=== PATIENT | male | born 1965 | race African-American/Black ===

== ENCOUNTER 2018-02-22 11:19 | Inpatient (IN) | payer OTHER ==
[2018-02-22 11:42] VITALS: BMI 31.8
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
[2018-02-22] MEDS ORDERED: MENTHOL/PHENOL 1 EACH UD MM PRN (14:07)
[2018-02-22] MEDS ORDERED: MAG HYDROX/AL HYDROX/SIMETH 30 ML UNIT-DOSE CUP PO PRN (14:07)
[2018-02-22] MEDS ORDERED: MAGNESIUM HYDROX 2400MG/30ML ORAL SUSPENSION 30 ML CUP PO PRN (14:07)
[2018-02-22] MEDS ORDERED: P-EPHED 60MG/TRIPROLIDI 2.5MG TABLET PO PRN (14:07)
[2018-02-22] MEDS ORDERED: MAGNESIUM CITRATE 300 ML BOTTLE PO PRN (14:07)
[2018-02-22] MEDS ORDERED: chlordiazePOXIDE HCL 25 MG CAPSULE PO PRN (14:07)
[2018-02-22] MEDS ORDERED: guaiFENesin/D-METHORPHAN HB 10 ML UNIT-DOSE CUPS PO PRN (14:07)
[2018-02-22] MEDS ORDERED: LOPERAMIDE HCL 2 MG CAPSULE PO PRN (14:07)
[2018-02-22] MEDS ORDERED: IBUPROFEN 400 MG TABLET (FP) PO PRN (14:07)
[2018-02-22] MEDS ORDERED: ACETAMINOPHEN 325 MG TABLET (FP) PO PRN (14:07)
[2018-02-22] MEDS ORDERED: ALBUTEROL SO4 18 GM HFA INHALER IH PRN (14:12)
[2018-02-22] MEDS ORDERED: chlordiazePOXIDE HCL 25 MG CAPSULE PO ONE (15:00)
[2018-02-22] MEDS ORDERED: cloNIDine HCL 0.1 MG TABLET PO ONE (15:06)
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
[2018-02-22 17:02] LABS: HEMATOCRIT 41.3 % (35.4-49); HEMOGLOBIN 13.4 GM/dL (11.7-16.9); MCH 28.8 pg (25.7-33.7); MCHC 32.6 g/dl (32.0-35.9); MEAN CELL VOLUME 88.2 fl (80-96); MEAN PLT VOLUME 9.5 fl (7.5-11.1); PLATELET COUNT 194 K/MM3 (134-434); RBC 4.68 M/mm3 (4.00-5.60); RDW 15.2 % (11.9-15.9); WHITE BLOOD COUNT 4.3 K/mm3 (4.0-10.0)
[2018-02-22] MEDS ORDERED: chlordiazePOXIDE HCL 25 MG CAPSULE ONE (17:22)
[2018-02-22 17:30] LABS: ANION GAP 5 (8-16); BILIRUBIN,TOTAL 0.4 mg/dL (0.2-1.0); BLOOD UREA NITROGEN 14 mg/dL (7-18); CALCIUM 9.4 mg/dL (8.5-10.1); CHLORIDE 105 mmol/L (98-107); CO2 33 mmol/L (21-32); GLUCOSE,RANDOM 87 mg/dL (74-106); POTASSIUM 4.4 mmol/L (3.5-5.1); SGOT/AST 21 U/L (15-37); SGPT/ALT 36 U/L (12-78); SODIUM 143 mmol/L (136-145); TOT PROT 7.5 g/dl (6.4-8.2)
[2018-02-22 17:31] LABS: ALK PHOS 96 U/L (45-117)
[2018-02-22] MEDS: chlordiazePOXIDE HCL 25 MG CAPSULE PO SCH ×2 (17:33→22:22)
[2018-02-22 18:39] LABS: URINE APPEARANCE CLEAR; URINE BILIRUBIN NEGATIVE (<2.0 mg/dL); URINE COLOR YELLOW; URINE GLUCOSE (UA) NEGATIVE (NEGATIVE); URINE KETONE TRACE (NEGATIVE); URINE LEUK ESTERASE NEGATIVE (NEGATIVE); URINE NITRITE NEGATIVE (NEGATIVE); URINE PROTEIN NEGATIVE (NEGATIVE)
[2018-02-22] MEDS ORDERED: QUEtiapine FUMARATE 200 MG TABLET PO SCH (22:00)
[2018-02-22] MEDS ORDERED: QUEtiapine FUMARATE 100 MG TABLET (FP) PO SCH (22:00)
[2018-02-22] MEDS ORDERED: MELATONIN 5 MG TABLETS PO PRN (22:00)
[2018-02-22] MEDS: DULoxetine HCL 60 MG CAPSULE.DR PO SCH (22:22)
[2018-02-22] MEDS: traZODone HCL 100 MG TABLET (FP) PO SCH (22:22)
[2018-02-22] MEDS: THIAMINE HCL 100 MG TABLET (FP) PO SCH (22:22)
[2018-02-23] MEDS: chlordiazePOXIDE HCL 25 MG CAPSULE PO SCH ×4 (05:57→22:32)
--- NOTE | 2018-02-23 09:49 | EKG ---
Test Reason : Blood Pressure : / mmHG Vent. Rate : 058 BPM Atrial Rate : 058 BPM P-R Int : 174 ms QRS Dur : 088 ms QT Int : 402 ms P-R-T Axes : 037 038 -04 degrees QTc Int : 394 ms SINUS BRADYCARDIA MINIMAL VOLTAGE CRITERIA FOR LVH, MAY BE NORMAL VARIANT SEPTAL INFARCT , AGE UNDETERMINED ABNORMAL ECG NO PREVIOUS ECGS AVAILABLE Confirmed by TOM CUNNINGHAM MD ([id number]) on 02/23/2018 9:49:10 AM Referred By: Confirmed By:TOM CUNNINGHAM MD
[2018-02-23] MEDS: PRENATAL VITAMINS W/ FOLIC ACID TABLET (FP) PO SCH (10:34)
[2018-02-23] MEDS: ATENOLOL 50 MG TABLET (FP) PO SCH (10:34)
[2018-02-23] MEDS: DULoxetine HCL 60 MG CAPSULE.DR PO SCH ×2 (10:34→22:32)
[2018-02-23] MEDS: amLODIPine BESYLATE 10 MG TABLET (FP) PO SCH (10:34)
--- NOTE | 2018-02-23 12:08 | PN ---
[facility] Progress Note Note: Psychiatric nurse practitioner note: Patient able to tolerate his current evening dose of seroquel 200mg + Trazodone 100mg qhs. Pt was taking Seroquel 300mg before admitting self to detox. Seroquel to be increased to 250mg qhs. Pt. agreeable with plan. Verbal consent given.
--- NOTE | 2018-02-23 16:26 | PN ---
[facility] CIWA - CIWA Score Nausea/Vomitin-No Nausea/No Vomiting Muscle Tremors: 4-Moderate,w/Arms Extend Anxiety: 4-Mod. Anxious/Guarded Agitation: 2 Paroxysmal Sweats: 3 Orientation: 0-Oriented Tacttile Disturbances: 2-Mild Itch/Numbness/Burn Auditory Disturbances: 0-None Visual Disturbances: 2-Mild Sensitivity Headache: 0-None Present CIWA-Ar Total Score: 17 S Progress Note (SOAP) Subjective: Diarrhea, Sweating, Anxious, Tremors. Objective: PATIENT A & O X 3, OBSERVED AMBULATING ON UNIT. NO ACUTE DISTRESS. 02/23/18 16:27 Vital Signs Temperature 97.4 F L 02/23/18 14:00 Pulse Rate 80 02/23/18 14:00 Respiratory Rate 18 02/23/18 14:00 Blood Pressure 117/76 02/23/18 14:00 O2 Sat by Pulse Oximetry (%) Laboratory Tests 02/22/18 02/22/18 02/22/18 14:40 14:40 14:40 WBC 4.3 RBC 4.68 Hgb 13.4 Hct 41.3 MCV 88.2 MCH 28.8 MCHC 32.6 RDW 15.2 D Plt Count 194 MPV 9.5 D Sodium 143 Potassium 4.4 D Chloride 105 Carbon Dioxide 33 H Anion Gap 5 L BUN 14 Creatinine 1.0 D Creat Clearance w eGFR > 60 Random Glucose 87 Calcium 9.4 Total Bilirubin 0.4 D AST 21 ALT 36 D Alkaline Phosphatase 96 D Total Protein 7.5 Albumin 4.0 Urine Color Urine Appearance Urine pH Ur Specific [place] Urine Protein Urine Glucose (UA) Urine Ketones Urine Blood Urine Nitrite Urine Bilirubin Urine Urobilinogen Ur Leukocyte Esterase RPR Titer HIV 1&2 Antibody Screen Negative HIV P24 Antigen Negative 02/22/18 02/22/18 14:40 14:40 WBC RBC Hgb Hct MCV MCH MCHC RDW Plt Count MPV Sodium Potassium Chloride Carbon Dioxide Anion Gap BUN Creatinine Creat Clearance w eGFR Random Glucose Calcium Total Bilirubin AST ALT Alkaline Phosphatase Total Protein Albumin Urine Color Yellow Urine Appearance Clear Urine pH 7.0 Ur Specific [place] 1.018 Urine Protein Negative Urine Glucose (UA) Negative Urine Ketones Trace H Urine Blood Negative Urine Nitrite Negative Urine Bilirubin Negative Urine Urobilinogen 2.0 Ur Leukocyte Esterase Negative RPR Titer Nonreactive HIV 1&2 Antibody Screen HIV P24 Antigen LABS NOTED. Assessment: 02/23/18 16:27 WITHDRAWAL SYMPTOMS. Plan: CONTINUE DETOX. INCREASE DAILY PO FLUID INTAKE. PRN IMMODIUM FOR DIARRHEA.
[2018-02-23] MEDS ORDERED: QUEtiapine FUMARATE 200 MG TABLET ONE (21:41)
[2018-02-23] MEDS ORDERED: QUEtiapine FUMARATE 50 MG TABLET ONE (21:41)
[2018-02-23] MEDS ORDERED: QUEtiapine FUMARATE 200 MG TABLET PO SCH (22:00)
[2018-02-23] MEDS: traZODone HCL 100 MG TABLET (FP) PO SCH (22:32)
[2018-02-23] MEDS: THIAMINE HCL 100 MG TABLET (FP) PO SCH (22:32)
[2018-02-23] MEDS: QUETIAPINE FUMARATE 200 MG, QUETIAPINE FUMARATE 50 MG PO SCH (22:32)
[2018-02-24] MEDS: chlordiazePOXIDE HCL 25 MG CAPSULE PO SCH ×2 (05:29→10:35)
[2018-02-24] MEDS: ATENOLOL 50 MG TABLET (FP) PO SCH (10:34)
[2018-02-24] MEDS: DULoxetine HCL 60 MG CAPSULE.DR PO SCH ×2 (10:35→22:34)
[2018-02-24] MEDS: PRENATAL VITAMINS W/ FOLIC ACID TABLET (FP) PO SCH (10:35)
[2018-02-24] MEDS: amLODIPine BESYLATE 10 MG TABLET (FP) PO SCH (10:35)
[2018-02-24] MEDS: chlordiazePOXIDE 5 MG CAPSULE PO SCH ×2 (16:56→22:34)
[2018-02-24] MEDS ORDERED: QUEtiapine FUMARATE 50 MG TABLET ONE (21:24)
[2018-02-24] MEDS ORDERED: QUEtiapine FUMARATE 200 MG TABLET ONE (21:24)
--- NOTE | 2018-02-24 21:28 | PN ---
S CIWA - CIWA Score Nausea/Vomitin-No Nausea/No Vomiting Muscle Tremors: 3 Anxiety: 3 Agitation: 1-Slight > Activity Paroxysmal Sweats: 3 Orientation: 0-Oriented Tacttile Disturbances: 2-Mild Itch/Numbness/Burn Auditory Disturbances: 0-None Visual Disturbances: 2-Mild Sensitivity Headache: 0-None Present CIWA-Ar Total Score: 14 [facility] Progress Note (SOAP) Subjective: Sweating, Diarrhea, Anxious, Tremors. Objective: PATIENT A & O X 3, OBSERVED AMBULATING ON UNIT. NO ACUTE DISTRESS. 02/24/18 21:26 Vital Signs Temperature 98.7 F 02/24/18 17:54 Pulse Rate 76 02/24/18 17:54 Respiratory Rate 16 02/24/18 17:54 Blood Pressure 126/78 02/24/18 17:54 O2 Sat by Pulse Oximetry (%) Laboratory Tests 02/22/18 02/22/18 02/22/18 14:40 14:40 14:40 WBC 4.3 RBC 4.68 Hgb 13.4 Hct 41.3 MCV 88.2 MCH 28.8 MCHC 32.6 RDW 15.2 D Plt Count 194 MPV 9.5 D Sodium 143 Potassium 4.4 D Chloride 105 Carbon Dioxide 33 H Anion Gap 5 L BUN 14 Creatinine 1.0 D Creat Clearance w eGFR > 60 Random Glucose 87 Calcium 9.4 Total Bilirubin 0.4 D AST 21 ALT 36 D Alkaline Phosphatase 96 D Total Protein 7.5 Albumin 4.0 Urine Color Urine Appearance Urine pH Ur Specific [place] Urine Protein Urine Glucose (UA) Urine Ketones Urine Blood Urine Nitrite Urine Bilirubin Urine Urobilinogen Ur Leukocyte Esterase RPR Titer HIV 1&2 Antibody Screen Negative HIV P24 Antigen Negative 02/22/18 02/22/18 14:40 14:40 WBC RBC Hgb Hct MCV MCH MCHC RDW Plt Count MPV Sodium Potassium Chloride Carbon Dioxide Anion Gap BUN Creatinine Creat Clearance w eGFR Random Glucose Calcium Total Bilirubin AST ALT Alkaline Phosphatase Total Protein Albumin Urine Color Yellow Urine Appearance Clear Urine pH 7.0 Ur Specific [place] 1.018 Urine Protein Negative Urine Glucose (UA) Negative Urine Ketones Trace H Urine Blood Negative Urine Nitrite Negative Urine Bilirubin Negative Urine Urobilinogen 2.0 Ur Leukocyte Esterase Negative RPR Titer Nonreactive HIV 1&2 Antibody Screen HIV P24 Antigen LABS NOTED. Assessment: 02/24/18 21:26 WITHDRAWAL SYMPTOMS. Plan: CONTINUE DETOX. INCREASE DAILY PO FLUID INTAKE.
[2018-02-24] MEDS: THIAMINE HCL 100 MG TABLET (FP) PO SCH (22:34)
[2018-02-24] MEDS: QUETIAPINE FUMARATE 200 MG, QUETIAPINE FUMARATE 50 MG PO SCH (22:34)
[2018-02-24] MEDS: traZODone HCL 100 MG TABLET (FP) PO SCH (22:34)
[2018-02-25] MEDS: chlordiazePOXIDE 5 MG CAPSULE PO SCH ×2 (05:37→10:23)
[2018-02-25] MEDS: amLODIPine BESYLATE 10 MG TABLET (FP) PO SCH (10:23)
[2018-02-25] MEDS: ATENOLOL 50 MG TABLET (FP) PO SCH (10:23)
[2018-02-25] MEDS: DULoxetine HCL 60 MG CAPSULE.DR PO SCH ×2 (10:23→22:26)
[2018-02-25] MEDS: PRENATAL VITAMINS W/ FOLIC ACID TABLET (FP) PO SCH (10:23)
--- NOTE | 2018-02-25 13:14 | PN ---
[facility] Progress Note Note: body aches, Sweating, Diarrhea, Anxious Vital Signs Temperature 97.6 F 02/25/18 09:11 Pulse Rate 89 02/25/18 09:11 Respiratory Rate 18 02/25/18 09:11 Blood Pressure 129/82 02/25/18 09:11 O2 Sat by Pulse Oximetry (%) Laboratory Last Values WBC 4.3 K/mm3 (4.0-10.0) 02/22/18 14:40 RBC 4.68 M/mm3 (4.00-5.60) 02/22/18 14:40 Hgb 13.4 GM/dL (11.7-16.9) 02/22/18 14:40 Hct 41.3 % (35.4-49) 02/22/18 14:40 MCV 88.2 fl (80-96) 02/22/18 14:40 MCH 28.8 pg (25.7-33.7) 02/22/18 14:40 MCHC 32.6 g/dl (32.0-35.9) 02/22/18 14:40 RDW 15.2 % (11.9-15.9) D 02/22/18 14:40 Plt Count 194 K/MM3 (134-434) 02/22/18 14:40 MPV 9.5 fl (7.5-11.1) D 02/22/18 14:40 Sodium 143 mmol/L (136-145) 02/22/18 14:40 Potassium 4.4 mmol/L (3.5-5.1) D 02/22/18 14:40 Chloride 105 mmol/L (98-107) 02/22/18 14:40 Carbon Dioxide 33 mmol/L (21-32) H 02/22/18 14:40 Anion Gap 5 (8-16) L 02/22/18 14:40 BUN 14 mg/dL (7-18) 02/22/18 14:40 Creatinine 1.0 mg/dL (0.7-1.3) D 02/22/18 14:40 Creat Clearance w eGFR > 60 (>60) 02/22/18 14:40 Random Glucose 87 mg/dL (74-106) 02/22/18 14:40 Calcium 9.4 mg/dL (8.5-10.1) 02/22/18 14:40 Total Bilirubin 0.4 mg/dL (0.2-1.0) D 02/22/18 14:40 AST 21 U/L (15-37) 02/22/18 14:40 ALT 36 U/L (12-78) D 02/22/18 14:40 Alkaline Phosphatase 96 U/L (45-117) D 02/22/18 14:40 Total Protein 7.5 g/dl (6.4-8.2) 02/22/18 14:40 Albumin 4.0 g/dl (3.4-5.0) 02/22/18 14:40 Urine Color Yellow 02/22/18 14:40 Urine Appearance Clear 02/22/18 14:40 Urine pH 7.0 (5.0-8.0) 02/22/18 14:40 Ur Specific [place] 1.018 (1.001-1.035) 02/22/18 14:40 Urine Protein Negative (NEGATIVE) 02/22/18 14:40 Urine Glucose (UA) Negative (NEGATIVE) 02/22/18 14:40 Urine Ketones Trace (NEGATIVE) H 02/22/18 14:40 Urine Blood Negative (NEGATIVE) 02/22/18 14:40 Urine Nitrite Negative (NEGATIVE) 02/22/18 14:40 Urine Bilirubin Negative (<2.0 mg/dL) 02/22/18 14:40 Urine Urobilinogen 2.0 mg/dL (0.2-1.0) 02/22/18 14:40 Ur Leukocyte Esterase Negative (NEGATIVE) 02/22/18 14:40 RPR Titer Nonreactive (NONREACTIVE) 02/22/18 14:40 HIV 1&2 Antibody Screen Negative 02/22/18 14:40 HIV P24 Antigen Negative 02/22/18 14:40 AOx3 no distress no adventitious breath sound s full ROM, ambulating in the unit withdrawal symptoms continue detox increase fluids continue to monitor
[2018-02-25] MEDS: chlordiazePOXIDE HCL 10 MG CAPSULE PO SCH ×2 (17:35→22:25)
[2018-02-25] MEDS ORDERED: QUEtiapine FUMARATE 200 MG TABLET ONE (21:17)
[2018-02-25] MEDS ORDERED: QUEtiapine FUMARATE 50 MG TABLET ONE (21:17)
[2018-02-25] MEDS: traZODone HCL 100 MG TABLET (FP) PO SCH (22:25)
[2018-02-25] MEDS: QUETIAPINE FUMARATE 200 MG, QUETIAPINE FUMARATE 50 MG PO SCH (22:25)
[2018-02-25] MEDS: THIAMINE HCL 100 MG TABLET (FP) PO SCH (22:27)
[2018-02-26] MEDS: chlordiazePOXIDE HCL 10 MG CAPSULE PO SCH ×2 (05:32→11:05)
[2018-02-26] MEDS: ATENOLOL 50 MG TABLET (FP) PO SCH (10:20)
[2018-02-26] MEDS: amLODIPine BESYLATE 10 MG TABLET (FP) PO SCH (10:20)
[2018-02-26] MEDS: PRENATAL VITAMINS W/ FOLIC ACID TABLET (FP) PO SCH (10:20)
[2018-02-26] MEDS: DULoxetine HCL 60 MG CAPSULE.DR PO SCH (10:20)
--- NOTE | 2018-02-26 10:21 | PN ---
[facility] Progress Note (SOAP) Subjective: DETOX COMPLETED. ALERT O X 3. NAD. PT REFERRED TO [facility] FOR [facility]ARE. Objective: 02/26/18 10:19 Vital Signs 02/26/18 02/26/18 02/26/18 06:30 06:35 09:06 Temperature 97.2 F L 97.0 F L Pulse Rate 67 84 Respiratory 18 18 16 Rate Blood Pressure 112/68 113/72 Laboratory Tests 02/22/18 02/22/18 02/22/18 14:40 14:40 14:40 WBC 4.3 RBC 4.68 Hgb 13.4 Hct 41.3 MCV 88.2 MCH 28.8 MCHC 32.6 RDW 15.2 D Plt Count 194 MPV 9.5 D Sodium 143 Potassium 4.4 D Chloride 105 Carbon Dioxide 33 H Anion Gap 5 L BUN 14 Creatinine 1.0 D Creat Clearance w eGFR > 60 Random Glucose 87 Calcium 9.4 Total Bilirubin 0.4 D AST 21 ALT 36 D Alkaline Phosphatase 96 D Total Protein 7.5 Albumin 4.0 Urine Color Urine Appearance Urine pH Ur Specific [place] Urine Protein Urine Glucose (UA) Urine Ketones Urine Blood Urine Nitrite Urine Bilirubin Urine Urobilinogen Ur Leukocyte Esterase RPR Titer HIV 1&2 Antibody Screen Negative HIV P24 Antigen Negative 02/22/18 02/22/18 14:40 14:40 WBC RBC Hgb Hct MCV MCH MCHC RDW Plt Count MPV Sodium Potassium Chloride Carbon Dioxide Anion Gap BUN Creatinine Creat Clearance w eGFR Random Glucose Calcium Total Bilirubin AST ALT Alkaline Phosphatase Total Protein Albumin Urine Color Yellow Urine Appearance Clear Urine pH 7.0 Ur Specific [place] 1.018 Urine Protein Negative Urine Glucose (UA) Negative Urine Ketones Trace H Urine Blood Negative Urine Nitrite Negative Urine Bilirubin Negative Urine Urobilinogen 2.0 Ur Leukocyte Esterase Negative RPR Titer Nonreactive HIV 1&2 Antibody Screen HIV P24 Antigen Assessment: 02/26/18 10:19 MEDICALLY STABLE Plan: D/C PT [place]
--- NOTE | 2018-02-26 10:24 | DS ---
[facility] Detox Discharge Summary Admission Date: 02/22/18 Discharge Date: 02/26/18 - History Present History: Alcohol Dependence Additional Comments: DETOX COMPLETED. ALERT O X 3. NAD. PT REPORTS PRIMARY CARE WITH LANCE DUONG BRICK PICKER AT [facility]. PT REPORTS HE HAS OWN MEDS. Pertinent Past History: SEE DX BELOW - Physical Exam Results Vital Signs: Vital Signs Temperature 97.0 F L 02/26/18 09:06 Pulse Rate 84 02/26/18 09:06 Respiratory Rate 16 02/26/18 09:06 Blood Pressure 113/72 02/26/18 09:06 O2 Sat by Pulse Oximetry (%) Pertinent Admission Physical Exam Findings: WITHDRAWAL SX - Treatment Hospital Course: Detox Protocol Followed, Detoxed Safely, Responded well, Discharged Condition Good, Rehab Referral Accepted Patient has Accepted a Rehab Referral to: [facility] - Medication Discharge Medications: Ambulatory Orders Albuterol Sulfate Inhaler - [Ventolin Hfa Inhaler -] 2 inh PO Q4H PRN 02/22/18 Amlodipine Besylate [Norvasc -] 10 mg PO DAILY 02/22/18 Atenolol [Tenormin -] 100 mg PO DAILY 02/22/18 Duloxetine HCl [Cymbalta -] 60 mg PO BID 02/22/18 Multivitamins [Tab-A-Vit -] 1 tab PO DAILY 02/22/18 Naltrexone HCl 50 mg PO DAILY 02/22/18 Quetiapine Fumarate [Seroquel] 300 tab PO HS 02/22/18 Trazodone HCl 100 mg PO HS 02/22/18 - Diagnosis (1) Alcohol dependence with uncomplicated withdrawal Current Visit: Yes Status: Acute (2) Alcohol related seizure Current Visit: Yes Status: Suspected (3) Nicotine dependence Current Visit: Yes Status: Acute Qualifiers: Nicotine product type: cigarettes Substance use status: in withdrawal Qualified Code(s): F17.213 - Nicotine dependence, cigarettes, with withdrawal (4) Arthritis Current Visit: Yes Status: Chronic (5) History of abdominal surgery Current Visit: Yes Status: Resolved (6) History of partial nephrectomy Current Visit: Yes Status: Resolved (7) History of seizure Current Visit: Yes Status: Suspected (8) Hypertension Current Visit: Yes Status: Chronic Qualifiers: Hypertension type: essential hypertension Qualified Code(s): I10 - Essential (primary) hypertension (9) COPD (chronic obstructive pulmonary disease) Current Visit: Yes Status: Chronic Qualifiers: COPD type: unspecified COPD Qualified Code(s): J44.9 - Chronic obstructive pulmonary disease, unspecified (10) Hepatitis C Current Visit: Yes Status: Resolved Qualifiers: Viral hepatitis chronicity: chronic Hepatic coma status: without hepatic coma Qualified Code(s): B18.2 - Chronic viral hepatitis C (11) Carpal tunnel syndrome, bilateral Current Visit: Yes Status: Chronic - AMA Did Patient Leave Against Medical Advice: No
[2018-02-26 13:07] VITALS: BP 127/79; PULSE 71; TEMP 98.6
== END 2018-02-26 13:55 | disposition other institution (70) | DRG 775 ==
LOC: YASAS 11:19 → Y3N 14:05
PROVIDERS: ADMIT Family Medicine Addiction Medicine; ATTEND Family Medicine Addiction Medicine
PROC: HZ2ZZZZ Detoxification Services for Substance Abuse Treatment (ICD-10-PCS; principal; 2018-02-22)
DX: F10.230 Alcohol dependence with withdrawal, uncomplicated (principal); F17.213 Nicotine dependence, cigarettes, with withdrawal; F25.9 Schizoaffective disorder, unspecified; F19.282 Other psychoactive substance dependence with psychoactive substance-induced sleep disorder; I10 Essential (primary) hypertension; M19.90 Unspecified osteoarthritis, unspecified site; J44.9 Chronic obstructive pulmonary disease, unspecified; B18.2 Chronic viral hepatitis C; G56.03 Carpal tunnel syndrome, bilateral upper limbs; Z86.69 Personal history of other diseases of the nervous system and sense organs; Z90.5 Acquired absence of kidney; Z91.041 Radiographic dye allergy status; Z91.5 Personal history of self-harm
CPT/HCPCS: 36415; 80053; 81003; 85027; 86593; 87389; 93005; 93010; J0735

== ENCOUNTER 2018-06-20 19:40 | Inpatient (IN) | payer OTHER ==
[2018-06-20 20:15] VITALS: BMI 25.1
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
[2018-06-20] MEDS ORDERED: LOPERAMIDE HCL 2 MG CAPSULE PO PRN (21:05)
[2018-06-20] MEDS ORDERED: MENTHOL/PHENOL 1 EACH UD MM PRN (21:05)
[2018-06-20] MEDS ORDERED: guaiFENesin/D-METHORPHAN HB 10 ML UNIT-DOSE CUPS PO PRN (21:05)
[2018-06-20] MEDS ORDERED: hydrOXYzine PAMOATE 50 MG CAPSULE (FP) PO PRN (21:05)
[2018-06-20] MEDS ORDERED: ACETAMINOPHEN 325 MG TABLET (FP) PO PRN (21:05)
[2018-06-20] MEDS ORDERED: MAGNESIUM CITRATE 300 ML BOTTLE PO PRN (21:05)
[2018-06-20] MEDS ORDERED: MAGNESIUM HYDROX 2400MG/30ML ORAL SUSPENSION 30 ML CUP PO PRN (21:05)
[2018-06-20] MEDS ORDERED: chlordiazePOXIDE HCL 25 MG CAPSULE PO ONE (21:05)
[2018-06-20] MEDS ORDERED: MAG HYDROX/AL HYDROX/SIMETH 30 ML UNIT-DOSE CUP PO PRN (21:05)
[2018-06-20] MEDS ORDERED: P-EPHED 60MG/TRIPROLIDI 2.5MG TABLET PO PRN (21:05)
[2018-06-20] MEDS ORDERED: chlordiazePOXIDE HCL 25 MG CAPSULE PO PRN (21:05)
[2018-06-20] MEDS ORDERED: IBUPROFEN 400 MG TABLET (FP) PO PRN (21:05)
[2018-06-20] MEDS ORDERED: ALBUTEROL SO4 8 GM HFA INHALER IH PRN (21:07)
[2018-06-20] MEDS ORDERED: MELATONIN 5 MG TABLETS PO PRN (22:00)
[2018-06-20] MEDS ORDERED: ZOLPIDEM TARTRATE 5 MG TABLET PO PRN (22:00)
[2018-06-20] MEDS: chlordiazePOXIDE HCL 25 MG CAPSULE PO SCH (22:19)
[2018-06-20] MEDS: THIAMINE HCL 100 MG TABLET (FP) PO SCH (22:20)
[2018-06-20 23:17] LABS: URINE APPEARANCE CLEAR; URINE BILIRUBIN NEGATIVE (<2.0 mg/dL); URINE COLOR YELLOW; URINE GLUCOSE (UA) NEGATIVE (NEGATIVE); URINE KETONE 1+ (NEGATIVE); URINE LEUK ESTERASE NEGATIVE (NEGATIVE); URINE NITRITE NEGATIVE (NEGATIVE); URINE PROTEIN 1+ (NEGATIVE)
[2018-06-20 23:30] LABS: EPI CELLS RARE /HPF (FEW); URINE MUCUS FEW
[2018-06-21] MEDS: chlordiazePOXIDE HCL 25 MG CAPSULE PO SCH ×4 (05:47→22:25)
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
[2018-06-21 10:19] LABS: HEMATOCRIT 44.3 % (35.4-49); HEMOGLOBIN 13.9 GM/dL (11.7-16.9); MCH 27.5 pg (25.7-33.7); MCHC 31.4 g/dl (32.0-35.9); MEAN CELL VOLUME 87.8 fl (80-96); MEAN PLT VOLUME 9.6 fl (7.5-11.1); PLATELET COUNT 161 K/MM3 (134-434); RBC 5.05 M/mm3 (4.00-5.60); RDW 13.9 % (11.9-15.9); WHITE BLOOD COUNT 4.2 K/mm3 (4.0-10.0)
[2018-06-21] MEDS: ATENOLOL 50 MG TABLET (FP) PO SCH (10:29)
[2018-06-21] MEDS: PRENATAL VITAMINS W/ FOLIC ACID TABLET (FP) PO SCH (10:29)
[2018-06-21] MEDS: DULoxetine HCL 60 MG CAPSULE.DR PO SCH ×2 (10:29→22:25)
[2018-06-21] MEDS: amLODIPine BESYLATE 10 MG TABLET (FP) PO SCH (10:29)
[2018-06-21 10:34] LABS: ALBUMIN 3.7 g/dl (3.4-5.0); ALK PHOS 93 U/L (45-117); ANION GAP 8 MMOL/L (8-16); BILIRUBIN,TOTAL 0.7 mg/dL (0.2-1); BLOOD UREA NITROGEN 12 mg/dL (7-18); CALCIUM 8.8 mg/dL (8.5-10.1); CHLORIDE 102 mmol/L (98-107); CO2 29 mmol/L (21-32); CREATININE 0.8 mg/dL (0.55-1.3); GLUCOSE,RANDOM 79 mg/dL (74-106); SGOT/AST 32 U/L (15-37); SGPT/ALT 27 U/L (13-61); SODIUM 139 mmol/L (136-145); TOT PROT 7.1 g/dl (6.4-8.2)
[2018-06-21 11:32] LABS: RPR NONREACTIVE (NONREACTIVE)
--- NOTE | 2018-06-21 11:53 | PN ---
[facility] CIWA - CIWA Score Nausea/Vomitin-No Nausea/No Vomiting Muscle Tremors: 3 Anxiety: 3 Agitation: 3 Paroxysmal Sweats: 3 Orientation: 0-Oriented Tacttile Disturbances: 0-None Auditory Disturbances: 0-None Visual Disturbances: 0-None Headache: 0-None Present CIWA-Ar Total Score: 12 BHS Progress Note (SOAP) Subjective: agitation stomach ache sweats body aches irritable diarrhea Objective: 06/21/18 11:51 Vital Signs Temperature 98.1 F 06/21/18 11:03 Pulse Rate 90 06/21/18 11:03 Respiratory Rate 18 06/21/18 11:03 Blood Pressure 117/73 06/21/18 11:03 O2 Sat by Pulse Oximetry (%) Laboratory Tests 06/20/18 06/21/18 06/21/18 23:00 07:00 07:00 WBC 4.2 RBC 5.05 Hgb 13.9 Hct 44.3 MCV 87.8 MCH 27.5 MCHC 31.4 L RDW 13.9 Plt Count 161 MPV 9.6 Sodium 139 Potassium 4.0 Chloride 102 Carbon Dioxide 29 Anion Gap 8 BUN 12 Creatinine 0.8 Creat Clearance w eGFR > 60 Random Glucose 79 Calcium 8.8 Total Bilirubin 0.7 AST 32 ALT 27 Alkaline Phosphatase 93 Total Protein 7.1 Albumin 3.7 Urine Color Yellow Urine Appearance Clear Urine pH 6.0 Ur Specific [place] 1.023 Urine Protein 1+ H Urine Glucose (UA) Negative Urine Ketones 1+ H Urine Blood Negative Urine Nitrite Negative Urine Bilirubin Negative Urine Urobilinogen 2.0 Ur Leukocyte Esterase Negative Urine WBC (Auto) 9 Urine RBC (Auto) 1 Ur Epithelial Cells Rare Urine Mucus Few RPR Titer HIV 1&2 Antibody Screen HIV P24 Antigen 06/21/18 07:00 WBC RBC Hgb Hct MCV MCH MCHC RDW Plt Count MPV Sodium Potassium Chloride Carbon Dioxide Anion Gap BUN Creatinine Creat Clearance w eGFR Random Glucose Calcium Total Bilirubin AST ALT Alkaline Phosphatase Total Protein Albumin Urine Color Urine Appearance Urine pH Ur Specific [place] Urine Protein Urine Glucose (UA) Urine Ketones Urine Blood Urine Nitrite Urine Bilirubin Urine Urobilinogen Ur Leukocyte Esterase Urine WBC (Auto) Urine RBC (Auto) Ur Epithelial Cells Urine Mucus RPR Titer Nonreactive HIV 1&2 Antibody Screen Negative HIV P24 Antigen Negative aaox3 ambulating no acute distress Assessment: 06/21/18 11:51 withdrawal sx Plan: continue detox increase fluids MOM prn immodium prn maribel marce ordered
--- NOTE | 2018-06-21 12:13 | EKG ---
Test Reason : Blood Pressure : / mmHG Vent. Rate : 080 BPM Atrial Rate : 080 BPM P-R Int : 166 ms QRS Dur : 078 ms QT Int : 400 ms P-R-T Axes : 047 048 016 degrees QTc Int : 461 ms NORMAL SINUS RHYTHM NONSPECIFIC T WAVE ABNORMALITY PROLONGED QT ABNORMAL ECG WHEN COMPARED WITH ECG OF 22-FEB-2018 15:06, CRITERIA FOR SEPTAL INFARCT ARE NO LONGER PRESENT QT HAS LENGTHENED Confirmed by COLLINS CRUZ, YAMIL ([id number]) on 06/21/2018 12:12:44 PM Referred By: Confirmed By:YAMIL GUADALUPE MD
[2018-06-21] MEDS ORDERED: QUEtiapine FUMARATE 100 MG TABLET (FP) PO SCH (22:00)
[2018-06-21] MEDS: traZODone HCL 100 MG TABLET (FP) PO SCH (22:25)
[2018-06-21] MEDS: THIAMINE HCL 100 MG TABLET (FP) PO SCH (22:25)
[2018-06-21] MEDS: QUEtiapine FUMARATE 300 MG TABLET PO SCH (22:27)
[2018-06-22] MEDS: chlordiazePOXIDE HCL 25 MG CAPSULE PO SCH ×3 (05:42→17:33)
[2018-06-22] MEDS: ATENOLOL 50 MG TABLET (FP) PO SCH (11:04)
[2018-06-22] MEDS: PRENATAL VITAMINS W/ FOLIC ACID TABLET (FP) PO SCH (11:04)
[2018-06-22] MEDS: amLODIPine BESYLATE 10 MG TABLET (FP) PO SCH (11:04)
[2018-06-22] MEDS: DULoxetine HCL 60 MG CAPSULE.DR PO SCH ×2 (11:04→22:17)
--- NOTE | 2018-06-22 14:02 | PN ---
[facility] CIWA - CIWA Score Nausea/Vomitin-No Nausea/No Vomiting Muscle Tremors: 3 Anxiety: 3 Agitation: 3 Paroxysmal Sweats: 2 Orientation: 0-Oriented Tacttile Disturbances: 0-None Auditory Disturbances: 0-None Visual Disturbances: 0-None Headache: 0-None Present CIWA-Ar Total Score: 11 S Progress Note (SOAP) Subjective: little diarrhea sweats agitation Objective: 06/22/18 14:01 Vital Signs Temperature 97.8 F 06/22/18 10:00 Pulse Rate 95 H 06/22/18 10:00 Respiratory Rate 18 06/22/18 10:00 Blood Pressure 108/65 06/22/18 10:00 O2 Sat by Pulse Oximetry (%) Laboratory Tests 06/20/18 06/21/18 06/21/18 23:00 07:00 07:00 WBC 4.2 RBC 5.05 Hgb 13.9 Hct 44.3 MCV 87.8 MCH 27.5 MCHC 31.4 L RDW 13.9 Plt Count 161 MPV 9.6 Sodium 139 Potassium 4.0 Chloride 102 Carbon Dioxide 29 Anion Gap 8 BUN 12 Creatinine 0.8 Creat Clearance w eGFR > 60 Random Glucose 79 Calcium 8.8 Total Bilirubin 0.7 AST 32 ALT 27 Alkaline Phosphatase 93 Total Protein 7.1 Albumin 3.7 Urine Color Yellow Urine Appearance Clear Urine pH 6.0 Ur Specific [place] 1.023 Urine Protein 1+ H Urine Glucose (UA) Negative Urine Ketones 1+ H Urine Blood Negative Urine Nitrite Negative Urine Bilirubin Negative Urine Urobilinogen 2.0 Ur Leukocyte Esterase Negative Urine WBC (Auto) 9 Urine RBC (Auto) 1 Ur Epithelial Cells Rare Urine Mucus Few [place] RPR Titer HIV 1&2 Antibody Screen HIV P24 Antigen 06/21/18 06/21/18 07:00 07:00 WBC RBC Hgb Hct MCV MCH MCHC RDW Plt Count MPV Sodium Potassium Chloride Carbon Dioxide Anion Gap BUN Creatinine Creat Clearance w eGFR Random Glucose Calcium Total Bilirubin AST ALT Alkaline Phosphatase Total Protein Albumin Urine Color Urine Appearance Urine pH Ur Specific [place] Urine Protein Urine Glucose (UA) Urine Ketones Urine Blood Urine Nitrite Urine Bilirubin Urine Urobilinogen Ur Leukocyte Esterase Urine WBC (Auto) Urine RBC (Auto) Ur Epithelial Cells Urine Mucus [place] 0 L RPR Titer Nonreactive HIV 1&2 Antibody Screen Negative HIV P24 Antigen Negative aaox3 ambulating no acute distress Assessment: 06/22/18 14:02 mild withdrawal sx Plan: continue detox increase fluids immodium prn
[2018-06-22] MEDS: chlordiazePOXIDE 5 MG CAPSULE PO SCH (22:16)
[2018-06-22] MEDS: traZODone HCL 100 MG TABLET (FP) PO SCH (22:16)
[2018-06-22] MEDS: THIAMINE HCL 100 MG TABLET (FP) PO SCH (22:17)
[2018-06-22] MEDS: QUEtiapine FUMARATE 300 MG TABLET PO SCH (22:17)
[2018-06-23] MEDS: chlordiazePOXIDE 5 MG CAPSULE PO SCH ×3 (05:47→17:16)
[2018-06-23] MEDS: PRENATAL VITAMINS W/ FOLIC ACID TABLET (FP) PO SCH (10:46)
[2018-06-23] MEDS: ATENOLOL 50 MG TABLET (FP) PO SCH (10:46)
[2018-06-23] MEDS: DULoxetine HCL 60 MG CAPSULE.DR PO SCH ×2 (10:46→22:16)
[2018-06-23] MEDS: amLODIPine BESYLATE 10 MG TABLET (FP) PO SCH (10:46)
--- NOTE | 2018-06-23 15:46 | PN ---
[facility] Progress Note Note: Vital Signs Temperature 97.5 F L 06/23/18 15:14 Pulse Rate 84 06/23/18 15:14 Respiratory Rate 16 06/23/18 15:14 Blood Pressure 109/53 L 06/23/18 15:14 O2 Sat by Pulse Oximetry (%) Laboratory Last Values WBC 4.2 K/mm3 (4.0-10.0) 06/21/18 07:00 RBC 5.05 M/mm3 (4.00-5.60) 06/21/18 07:00 Hgb 13.9 GM/dL (11.7-16.9) 06/21/18 07:00 Hct 44.3 % (35.4-49) 06/21/18 07:00 MCV 87.8 fl (80-96) 06/21/18 07:00 MCH 27.5 pg (25.7-33.7) 06/21/18 07:00 MCHC 31.4 g/dl (32.0-35.9) L 06/21/18 07:00 RDW 13.9 % (11.9-15.9) 06/21/18 07:00 Plt Count 161 K/MM3 (134-434) 06/21/18 07:00 MPV 9.6 fl (7.5-11.1) 06/21/18 07:00 Sodium 139 mmol/L (136-145) 06/21/18 07:00 Potassium 4.0 mmol/L (3.5-5.1) 06/21/18 07:00 Chloride 102 mmol/L (98-107) 06/21/18 07:00 Carbon Dioxide 29 mmol/L (21-32) 06/21/18 07:00 Anion Gap 8 MMOL/L (8-16) 06/21/18 07:00 BUN 12 mg/dL (7-18) 06/21/18 07:00 Creatinine 0.8 mg/dL (0.55-1.3) 06/21/18 07:00 Creat Clearance w eGFR > 60 (>60) 06/21/18 07:00 Random Glucose 79 mg/dL (74-106) 06/21/18 07:00 Calcium 8.8 mg/dL (8.5-10.1) 06/21/18 07:00 Total Bilirubin 0.7 mg/dL (0.2-1) 06/21/18 07:00 AST 32 U/L (15-37) 06/21/18 07:00 ALT 27 U/L (13-61) 06/21/18 07:00 Alkaline Phosphatase 93 U/L (45-117) 06/21/18 07:00 Total Protein 7.1 g/dl (6.4-8.2) 06/21/18 07:00 Albumin 3.7 g/dl (3.4-5.0) 06/21/18 07:00 Urine Color Yellow 06/20/18 23:00 Urine Appearance Clear 06/20/18 23:00 Urine pH 6.0 (5.0-8.0) 06/20/18 23:00 Ur Specific [place] 1.023 (1.010-1.035) 06/20/18 23:00 Urine Protein 1+ (NEGATIVE) H 06/20/18 23:00 Urine Glucose (UA) Negative (NEGATIVE) 06/20/18 23:00 Urine Ketones 1+ (NEGATIVE) H 06/20/18 23:00 Urine Blood Negative (NEGATIVE) 06/20/18 23:00 Urine Nitrite Negative (NEGATIVE) 06/20/18 23:00 Urine Bilirubin Negative (<2.0 mg/dL) 06/20/18 23:00 Urine Urobilinogen 2.0 mg/dL (0.2-1.0) 06/20/18 23:00 Ur Leukocyte Esterase Negative (NEGATIVE) 06/20/18 23:00 Urine WBC (Auto) 9 /hpf (3-5) 06/20/18 23:00 Urine RBC (Auto) 1 /hpf (0-3) 06/20/18 23:00 Ur Epithelial Cells Rare /HPF (FEW) 06/20/18 23:00 Urine Mucus Few 06/20/18 23:00 [place] 0 MEQ/L (0.6-1.2) L 06/21/18 07:00 RPR Titer Nonreactive (NONREACTIVE) 06/21/18 07:00 HIV 1&2 Antibody Screen Negative 06/21/18 07:00 HIV P24 Antigen Negative 06/21/18 07:00 body aches, diarrhea, anxious AOx3 no distress no adventitious breath sounds full ROM ambulating in the unit withdrawal sx continue detox d/c 06/25/18 to rehab
[2018-06-23] MEDS: THIAMINE HCL 100 MG TABLET (FP) PO SCH (22:16)
[2018-06-23] MEDS: chlordiazePOXIDE HCL 10 MG CAPSULE PO SCH (22:16)
[2018-06-23] MEDS: QUEtiapine FUMARATE 300 MG TABLET PO SCH (22:17)
[2018-06-23] MEDS: traZODone HCL 100 MG TABLET (FP) PO SCH (22:17)
[2018-06-24] MEDS: chlordiazePOXIDE HCL 10 MG CAPSULE PO SCH ×2 (05:53→10:49)
[2018-06-24] MEDS: PRENATAL VITAMINS W/ FOLIC ACID TABLET (FP) PO SCH (09:53)
[2018-06-24] MEDS: ATENOLOL 50 MG TABLET (FP) PO SCH (09:53)
[2018-06-24] MEDS: amLODIPine BESYLATE 10 MG TABLET (FP) PO SCH (09:53)
[2018-06-24] MEDS: DULoxetine HCL 60 MG CAPSULE.DR PO SCH (09:53)
[2018-06-24 11:18] VITALS: BP 103/63; PULSE 72; TEMP 98.6
--- NOTE | 2018-06-24 13:33 | DS ---
[facility] Detox Discharge Summary Admission Date: 06/20/18 Discharge Date: 06/24/18 - History Present History: Alcohol Dependence Additional Comments: 53 years old male admitted on 06/20/18 for alcohol withdrawal sx completed alcohol detox regimen tolerated well denies alcohol withdrawal sx alert oriented x 3 no acute distress aftercare [facility] - Physical Exam Results Vital Signs: Vital Signs Temperature 98.6 F 06/24/18 10:00 Pulse Rate 72 06/24/18 10:00 Respiratory Rate 16 06/24/18 10:00 Blood Pressure 103/63 06/24/18 10:00 O2 Sat by Pulse Oximetry (%) Pertinent Admission Physical Exam Findings: alcohol withdrawal sx Vital Signs Temperature 98.6 F 06/24/18 10:00 Pulse Rate 72 06/24/18 10:00 Respiratory Rate 16 06/24/18 10:00 Blood Pressure 103/63 06/24/18 10:00 O2 Sat by Pulse Oximetry (%) Laboratory Last Values WBC 4.2 K/mm3 (4.0-10.0) 06/21/18 07:00 RBC 5.05 M/mm3 (4.00-5.60) 06/21/18 07:00 Hgb 13.9 GM/dL (11.7-16.9) 06/21/18 07:00 Hct 44.3 % (35.4-49) 06/21/18 07:00 MCV 87.8 fl (80-96) 06/21/18 07:00 MCH 27.5 pg (25.7-33.7) 06/21/18 07:00 MCHC 31.4 g/dl (32.0-35.9) L 06/21/18 07:00 RDW 13.9 % (11.9-15.9) 06/21/18 07:00 Plt Count 161 K/MM3 (134-434) 06/21/18 07:00 MPV 9.6 fl (7.5-11.1) 06/21/18 07:00 Sodium 139 mmol/L (136-145) 06/21/18 07:00 Potassium 4.0 mmol/L (3.5-5.1) 06/21/18 07:00 Chloride 102 mmol/L (98-107) 06/21/18 07:00 Carbon Dioxide 29 mmol/L (21-32) 06/21/18 07:00 Anion Gap 8 MMOL/L (8-16) 06/21/18 07:00 BUN 12 mg/dL (7-18) 06/21/18 07:00 Creatinine 0.8 mg/dL (0.55-1.3) 06/21/18 07:00 Creat Clearance w eGFR > 60 (>60) 06/21/18 07:00 Random Glucose 79 mg/dL (74-106) 06/21/18 07:00 Calcium 8.8 mg/dL (8.5-10.1) 06/21/18 07:00 Total Bilirubin 0.7 mg/dL (0.2-1) 06/21/18 07:00 AST 32 U/L (15-37) 06/21/18 07:00 ALT 27 U/L (13-61) 06/21/18 07:00 Alkaline Phosphatase 93 U/L (45-117) 06/21/18 07:00 Total Protein 7.1 g/dl (6.4-8.2) 06/21/18 07:00 Albumin 3.7 g/dl (3.4-5.0) 06/21/18 07:00 Urine Color Yellow 06/20/18 23:00 Urine Appearance Clear 06/20/18 23:00 Urine pH 6.0 (5.0-8.0) 06/20/18 23:00 Ur Specific [place] 1.023 (1.010-1.035) 06/20/18 23:00 Urine Protein 1+ (NEGATIVE) H 06/20/18 23:00 Urine Glucose (UA) Negative (NEGATIVE) 06/20/18 23:00 Urine Ketones 1+ (NEGATIVE) H 06/20/18 23:00 Urine Blood Negative (NEGATIVE) 06/20/18 23:00 Urine Nitrite Negative (NEGATIVE) 06/20/18 23:00 Urine Bilirubin Negative (<2.0 mg/dL) 06/20/18 23:00 Urine Urobilinogen 2.0 mg/dL (0.2-1.0) 06/20/18 23:00 Ur Leukocyte Esterase Negative (NEGATIVE) 06/20/18 23:00 Urine WBC (Auto) 9 /hpf (3-5) 06/20/18 23:00 Urine RBC (Auto) 1 /hpf (0-3) 06/20/18 23:00 Ur Epithelial Cells Rare /HPF (FEW) 06/20/18 23:00 Urine Mucus Few 06/20/18 23:00 [place] 0 MEQ/L (0.6-1.2) L 06/21/18 07:00 RPR Titer Nonreactive (NONREACTIVE) 06/21/18 07:00 HIV 1&2 Antibody Screen Negative 06/21/18 07:00 HIV P24 Antigen Negative 06/21/18 07:00 lab noted - Treatment Hospital Course: Detox Protocol Followed, Detoxed Safely, Responded well, Discharged Condition Good, Rehab Referral Accepted Patient has Accepted a Rehab Referral to: [facility] - Medication Discharge Medications: Ambulatory Orders Multivitamins [Multivit ([facility] Formulary)] 1 tab PO DAILY 02/22/18 Naltrexone HCl 50 mg PO DAILY 02/22/18 Quetiapine Fumarate [Seroquel] 300 tab PO HS 02/22/18 Gabapentin [Neurontin -] 300 mg PO TID #90 capsule 03/12/18 Duloxetine HCl [Cymbalta -] 60 mg PO BID #60 capsule. 06/21/18 Quetiapine Fumarate [Seroquel -] 300 mg PO HS #30 tab 06/21/18 traZODone HCL [Desyrel -] 200 mg PO HS #30 tablet 06/21/18 Albuterol Sulfate Inhaler - [Ventolin HFA Inhaler -] 2 inh PO Q4H PRN #1 inhaler 06/24/18 Amlodipine Besylate [Norvasc -] 10 mg PO DAILY #30 tablet 06/24/18 Atenolol [Tenormin -] 100 mg PO DAILY #30 tablet 06/24/18 - Diagnosis (1) Alcohol dependence with uncomplicated withdrawal Current Visit: Yes Status: Acute (2) COPD (chronic obstructive pulmonary disease) Current Visit: Yes Status: Chronic Qualifiers: COPD type: unspecified COPD Qualified Code(s): J44.9 - Chronic obstructive pulmonary disease, unspecified (3) Hypertension Current Visit: Yes Status: Chronic Qualifiers: Hypertension type: essential hypertension Qualified Code(s): I10 - Essential (primary) hypertension (4) Nicotine dependence Current Visit: Yes Status: Acute Qualifiers: Nicotine product type: cigarettes Substance use status: in withdrawal Qualified Code(s): F17.213 - Nicotine dependence, cigarettes, with withdrawal (5) Hepatitis C Current Visit: No Status: Chronic Qualifiers: Viral hepatitis chronicity: unspecified Hepatic coma status: without hepatic coma Qualified Code(s): B19.20 - Unspecified viral hepatitis C without hepatic coma (6) Schizoaffective disorder Current Visit: Yes Status: Suspected Qualifiers: Schizoaffective disorder type: unspecified Qualified Code(s): F25.9 - Schizoaffective disorder, unspecified - AMA Did Patient Leave Against Medical Advice: No
== END 2018-06-24 13:40 | disposition home or self-care (01) | DRG 775 ==
LOC: YASAS 19:40 → Y6N 21:30
PROC: HZ2ZZZZ Detoxification Services for Substance Abuse Treatment (ICD-10-PCS; principal; 2018-06-20)
DX: F10.230 Alcohol dependence with withdrawal, uncomplicated (principal); F17.213 Nicotine dependence, cigarettes, with withdrawal; F19.24 Other psychoactive substance dependence with psychoactive substance-induced mood disorder; F19.282 Other psychoactive substance dependence with psychoactive substance-induced sleep disorder; F31.9 Bipolar disorder, unspecified; F25.9 Schizoaffective disorder, unspecified; F32.9 Major depressive disorder, single episode, unspecified; I10 Essential (primary) hypertension; J44.9 Chronic obstructive pulmonary disease, unspecified; B18.2 Chronic viral hepatitis C; M12.9 Arthropathy, unspecified; R55 Syncope and collapse; Z86.69 Personal history of other diseases of the nervous system and sense organs; Z86.59 Personal history of other mental and behavioral disorders; Z91.5 Personal history of self-harm
CPT/HCPCS: 36415; 80053; 80178; 81003; 81015; 85027; 86593; 87389; 93005; 93010

== ENCOUNTER 2018-06-24 13:51 | Inpatient (IN) | payer OTHER ==
--- NOTE | 2018-06-24 13:34 | HP ---
ELISABETH CRUZ Rehab Assess/Revision - Admission History Admitted to Rehab from: [facility] Date of Admission to Rehab: 06/24/18 - Findings Detox History & Physical reviewed: Yes Concur with findings: Yes Comments/Additional Findings: transferred from detox to rehab admission as per protocol Inpatient Rehab Admission - Initial Determination Are CD services needed?: Yes Free of communicable disease: Yes Not in need of hospitalization: Yes - Rehab Admission Criteria Previous failed treatment: Yes Poor recovery environment: Yes Comorbidities: Yes Lacks judgement: No Patient is meeting Inpatient Rehab admission criteria:: Yes
[~2018-06-24 13:51] MED LIST: ACETAMINOPHEN 325 MG TABLET (FP) PO PRN; ALBUTEROL SO4 8 GM HFA INHALER IH PRN; IBUPROFEN 400 MG TABLET (FP) PO PRN; LOPERAMIDE HCL 2 MG CAPSULE PO PRN; MAG HYDROX/AL HYDROX/SIMETH 30 ML UNIT-DOSE CUP PO PRN; MAGNESIUM CITRATE 300 ML BOTTLE PO PRN; MAGNESIUM HYDROX 2400MG/30ML ORAL SUSPENSION 30 ML CUP PO PRN; MENTHOL/PHENOL 1 EACH UD MM PRN; NICOTINE 14 MG/24 HOURS TOPICAL PATCH TD PRN; NICOTINE POLACRILEX 2 MG GUM BUC PRN; P-EPHED 60MG/TRIPROLIDI 2.5MG TABLET PO PRN; guaiFENesin/D-METHORPHAN HB 10 ML UNIT-DOSE CUPS PO PRN
[2018-06-24 15:32] VITALS: BMI 24.3
--- NOTE | 2018-06-24 16:02 | PN ---
S Progress Note Note: Psychiatrist senior contracts manager notes: As per nursing report patoient tresfert from [facility] , preamission medications are: Trazodone 200mg po qhs Seroquel 300mg po qhs Cymbalta 60mg po bid
[2018-06-24] MEDS: QUEtiapine FUMARATE 100 MG TABLET (FP) PO SCH (21:22)
[2018-06-24] MEDS: THIAMINE HCL 100 MG TABLET (FP) PO SCH (21:22)
[2018-06-24] MEDS: traZODone HCL 100 MG TABLET (FP) PO SCH (21:22)
[2018-06-24] MEDS: DULoxetine HCL 60 MG CAPSULE.DR PO SCH (21:22)
--- NOTE | 2018-06-25 10:43 | PN ---
[facility] Progress Note Note: C/O SEVERE BACK PAIN AND REQUESTING LIDOCAINE PATCH. ALERT O X 3. NAD. OOB AMBULATING WITH STEADY GAIT. Vital Signs 06/25/18 06/25/18 04:37 07:21 Temperature 97.1 F L Pulse Rate 73 Respiratory 18 18 Rate Blood Pressure 140/85 LIDOCAINE PATCH DIRECTED.
[2018-06-25] MEDS: ATENOLOL 50 MG TABLET (FP) PO SCH (10:53)
[2018-06-25] MEDS: PRENATAL VITAMINS W/ FOLIC ACID TABLET (FP) PO SCH (10:53)
[2018-06-25] MEDS: DULoxetine HCL 60 MG CAPSULE.DR PO SCH ×2 (11:05→21:44)
[2018-06-25] MEDS: LIDOCAINE 5% TOPICAL PATCH TP SCH (11:05)
[2018-06-25] MEDS: amLODIPine BESYLATE 10 MG TABLET (FP) PO SCH (11:05)
--- NOTE | 2018-06-25 13:49 | HP ---
Psychiatrist Admission - Data Date of interview: 06/25/18 Admission source: [address] [place] [address] detox Identifying data: this is the second admission to [address] [place] [address] inpatient rehabilitation for this 53 yars old AA divodced childless,homeless,supported by family. Medical History: HTN,H/O Hernia repair. Psychiatric History: reports first contact with psychiatrist in childhood ,dx with ADHD.patient was placed on ritalin for a while.he was started on psychotropics when he was dx with BIpolar disorder on 1987 when he was admitted to [facility] in [place].He reports about 15 more psychiatric hospitalizations.Most recent was a few weeks ago to [facility] due to severe depression,suicidal thoughts,stopped medications,drinking heavily.patient sees psychiatrist at [facility] in the [place].Current medications:Cymbalta 60 mg po bid,Trazodone 200 mg po hs,Seroquel 300 mg po hs. Physical/Sexual Abuse/Trauma History: denies Vital Signs: Vital Signs - 24 hr 06/24/18 06/25/18 06/25/18 15:57 00:32 04:37 Temperature 98.3 F Pulse Rate 82 Respiratory 19 18 18 Rate Blood Pressure 103/53 L 06/25/18 07:21 Temperature 97.1 F L Pulse Rate 73 Respiratory 18 Rate Blood Pressure 140/85 Allergies/Adverse Reactions: Allergies Allergy/AdvReac Type Severity Reaction Status Date / Time iodine Allergy Severe Hives Verified 06/20/18 21:30 contrast dye Allergy Severe Hives Uncoded 06/20/18 21:30 Date of last physical exam: 06/20/18 Concur with the findings of this exam: Yes - Substance Abuse/Tx History Hx Alcohol Use: Yes (drinking since 13 yo,heavy since his teens) Hx Substance Use: Yes (cocaine since 17yo (injections)) Substance Use Type: Alcohol, Cocaine Hx Substance Use Treatment: Yes (completed this program in February 2018) Mental Status Exam - Mental Status Exam Alert and Oriented to: Time, Place, Person Cognitive Function: Grossly Intact Patient Appearance: Unkempt Mood: Sad Affect: Mood Congruent, Labile Patient Behavior: Cooperative Speech Pattern: Clear Voice Loudness: Normal Thought Process: Goal Oriented Thought Disorder: Not Present Hallucinations: Denies Suicidal Ideation: Denies Homicidal Ideation: Denies Insight/Judgement: Fair Sleep: Fair Appetite: Good Muscle strength/Tone: Normal Gait/Station: Normal Psychiatric Findings - Problem List ([place] 1, 2,3) (1) Incisional hernia Status: Resolved (2) Nicotine dependence Status: Chronic Qualifiers: Nicotine product type: cigarettes Substance use status: in withdrawal Qualified Code(s): F17.213 - Nicotine dependence, cigarettes, with withdrawal (3) Substance-induced sleep disorder Status: Acute (4) Alcohol dependence Status: Chronic (5) Arthritis Status: Chronic (6) Alcohol dependence Status: Chronic (7) History of abdominal surgery Status: Resolved (8) History of partial nephrectomy Status: Inactive (9) History of seizure Status: Chronic Comment: DUE TO WITHDRAWAL. (10) Alcohol dependence Status: Chronic (11) Hepatitis C Status: Chronic Qualifiers: Viral hepatitis chronicity: unspecified Hepatic coma status: without hepatic coma Qualified Code(s): B19.20 - Unspecified viral hepatitis C without hepatic coma Comment: VIRAL LOAD UNDETECTABLE WITHOUT TREATMENT. (12) Hypertension Status: Chronic Qualifiers: Hypertension type: essential hypertension Qualified Code(s): I10 - Essential (primary) hypertension - Initial Treatment Plan Initial Treatment Plan: Continue curent medications as per plan.
[2018-06-25] MEDS: QUEtiapine FUMARATE 100 MG TABLET (FP) PO SCH (21:43)
[2018-06-25] MEDS: traZODone HCL 100 MG TABLET (FP) PO SCH (21:43)
[2018-06-25] MEDS: LIDOCAINE PATCH REMOVAL MC SCH (21:44)
[2018-06-25] MEDS: THIAMINE HCL 100 MG TABLET (FP) PO SCH (21:44)
[2018-06-26] MEDS: PRENATAL VITAMINS W/ FOLIC ACID TABLET (FP) PO SCH (10:21)
[2018-06-26] MEDS: ATENOLOL 50 MG TABLET (FP) PO SCH (10:21)
[2018-06-26] MEDS: amLODIPine BESYLATE 10 MG TABLET (FP) PO SCH (10:22)
[2018-06-26] MEDS: LIDOCAINE 5% TOPICAL PATCH TP SCH (10:22)
[2018-06-26] MEDS: DULoxetine HCL 60 MG CAPSULE.DR PO SCH (10:29)
--- NOTE | 2018-06-26 14:43 | PN ---
[facility] Progress Note Note: Patient requests that his medications be adjusted to the way he was getting them from [facility]. Patient discharge instruction from [facility] printed on 05/11/2018 shows that he was discharged on Duloxetine 60 mg po daily, [place] 300 mg po BID, Seroquel 30 mg po HS and Trazadone 200 mg po HS. His medications will be modified to reflex that change
[2018-06-26] MEDS: traZODone HCL 100 MG TABLET (FP) PO SCH (21:47)
[2018-06-26] MEDS: LITHIUM CARBONATE 300 MG CAPSULE (FP) PO SCH (21:47)
[2018-06-26] MEDS: LIDOCAINE PATCH REMOVAL MC SCH (21:47)
[2018-06-26] MEDS: THIAMINE HCL 100 MG TABLET (FP) PO SCH (21:47)
[2018-06-26] MEDS: QUEtiapine FUMARATE 300 MG TABLET PO SCH (21:48)
[2018-06-27] MEDS: amLODIPine BESYLATE 10 MG TABLET (FP) PO SCH (10:16)
[2018-06-27] MEDS: ATENOLOL 50 MG TABLET (FP) PO SCH (10:16)
[2018-06-27] MEDS: DULoxetine HCL 60 MG CAPSULE.DR PO SCH (10:16)
[2018-06-27] MEDS: PRENATAL VITAMINS W/ FOLIC ACID TABLET (FP) PO SCH (10:16)
[2018-06-27] MEDS: LITHIUM CARBONATE 300 MG CAPSULE (FP) PO SCH ×2 (10:16→21:45)
[2018-06-27] MEDS: LIDOCAINE 5% TOPICAL PATCH TP SCH (10:16)
[2018-06-27] MEDS: traZODone HCL 100 MG TABLET (FP) PO SCH (21:44)
[2018-06-27] MEDS: LIDOCAINE PATCH REMOVAL MC SCH (21:45)
[2018-06-27] MEDS: QUEtiapine FUMARATE 300 MG TABLET PO SCH (21:45)
[2018-06-27] MEDS: THIAMINE HCL 100 MG TABLET (FP) PO SCH (21:45)
--- NOTE | 2018-06-28 09:53 | PN ---
[facility] Progress Note Note: C/O LOWER BACK PAIN AND SPASMS NOT RELIEF WITH CURRENT PAIN MED. PT REPORTS CHRONIC PAIN AND HAD MRI BEFORE COMING ADMISSION TO [facility](RESULTS UNKNOWN). ALSO REPORTS HX CYST LEFT SIDE(NO DETAILS). ALERT O X 3. NAD. REQUESTING FOR ADDITIONAL PAIN RELIEF AID. PT DETOXED ON AND REFERRED TO REHAB SAME DAY ON 06/24/18 AFTER DETOX. Vital Signs - 24 hr 06/27/18 06/28/18 06/28/18 10:00 00:30 03:30 Temperature Pulse Rate 98 H Respiratory 18 18 Rate Blood Pressure 106/66 06/28/18 06:38 Temperature 98.1 F Pulse Rate 76 Respiratory 19 Rate Blood Pressure 114/76 PLAN:NAPROSYN 500 MG PO BID D/C IBUPROPHEN FLEXERIL 10 MG PO TID ANALGESIC BALM AT HS(11:00 P.M) LIDOCAINE PATCH DIRECTED. FOLLOW UP WITH PT'S PROGRESS.
[2018-06-28] MEDS: PRENATAL VITAMINS W/ FOLIC ACID TABLET (FP) PO SCH (10:21)
[2018-06-28] MEDS: LITHIUM CARBONATE 300 MG CAPSULE (FP) PO SCH ×2 (10:21→21:38)
[2018-06-28] MEDS: DULoxetine HCL 60 MG CAPSULE.DR PO SCH (10:21)
[2018-06-28] MEDS: NAPROXEN 500 MG TABLET (FP) PO SCH ×2 (10:22→21:38)
[2018-06-28] MEDS: LIDOCAINE 5% TOPICAL PATCH TP SCH (10:22)
[2018-06-28] MEDS: amLODIPine BESYLATE 10 MG TABLET (FP) PO SCH (10:22)
[2018-06-28] MEDS: ATENOLOL 50 MG TABLET (FP) PO SCH (10:22)
[2018-06-28] MEDS: CYCLOBENZAPRINE HCL 10 MG TABLET (FP) PO SCH ×2 (13:12→21:38)
[2018-06-28] MEDS: traZODone HCL 100 MG TABLET (FP) PO SCH (21:38)
[2018-06-28] MEDS: LIDOCAINE PATCH REMOVAL MC SCH (21:39)
[2018-06-28] MEDS: QUEtiapine FUMARATE 300 MG TABLET PO SCH (21:39)
[2018-06-28] MEDS: THIAMINE HCL 100 MG TABLET (FP) PO SCH (21:40)
[2018-06-28] MEDS: METHYL SALICYLATE/MENTHOL OINT 30 GM TUBE TP SCH (22:37)
[2018-06-29] MEDS: CYCLOBENZAPRINE HCL 10 MG TABLET (FP) PO SCH ×3 (06:26→21:38)
[2018-06-29] MEDS: PRENATAL VITAMINS W/ FOLIC ACID TABLET (FP) PO SCH (10:20)
[2018-06-29] MEDS: LITHIUM CARBONATE 300 MG CAPSULE (FP) PO SCH ×2 (10:21→21:38)
[2018-06-29] MEDS: DULoxetine HCL 60 MG CAPSULE.DR PO SCH (10:21)
[2018-06-29] MEDS: LIDOCAINE 5% TOPICAL PATCH TP SCH (10:21)
[2018-06-29] MEDS: ATENOLOL 50 MG TABLET (FP) PO SCH (10:21)
[2018-06-29] MEDS: amLODIPine BESYLATE 10 MG TABLET (FP) PO SCH (10:21)
[2018-06-29] MEDS: NAPROXEN 500 MG TABLET (FP) PO SCH ×2 (10:23→21:38)
[2018-06-29] MEDS: traZODone HCL 100 MG TABLET (FP) PO SCH (21:38)
[2018-06-29] MEDS: THIAMINE HCL 100 MG TABLET (FP) PO SCH (21:38)
[2018-06-29] MEDS: QUEtiapine FUMARATE 300 MG TABLET PO SCH (21:38)
[2018-06-29] MEDS: LIDOCAINE PATCH REMOVAL MC SCH (21:39)
[2018-06-29] MEDS: METHYL SALICYLATE/MENTHOL OINT 30 GM TUBE TP SCH (22:04)
[2018-06-30] MEDS: CYCLOBENZAPRINE HCL 10 MG TABLET (FP) PO SCH ×3 (06:36→21:45)
[2018-06-30] MEDS: NAPROXEN 500 MG TABLET (FP) PO SCH ×2 (10:21→21:45)
[2018-06-30] MEDS: PRENATAL VITAMINS W/ FOLIC ACID TABLET (FP) PO SCH (10:21)
[2018-06-30] MEDS: DULoxetine HCL 60 MG CAPSULE.DR PO SCH (10:21)
[2018-06-30] MEDS: ATENOLOL 50 MG TABLET (FP) PO SCH (10:21)
[2018-06-30] MEDS: LIDOCAINE 5% TOPICAL PATCH TP SCH (10:22)
[2018-06-30] MEDS: LITHIUM CARBONATE 300 MG CAPSULE (FP) PO SCH ×2 (10:22→21:45)
[2018-06-30] MEDS: amLODIPine BESYLATE 10 MG TABLET (FP) PO SCH (10:22)
[2018-06-30] MEDS: LIDOCAINE PATCH REMOVAL MC SCH (21:45)
[2018-06-30] MEDS: traZODone HCL 100 MG TABLET (FP) PO SCH (21:45)
[2018-06-30] MEDS: THIAMINE HCL 100 MG TABLET (FP) PO SCH (21:45)
[2018-06-30] MEDS: QUEtiapine FUMARATE 300 MG TABLET PO SCH (21:46)
[2018-06-30] MEDS: METHYL SALICYLATE/MENTHOL OINT 30 GM TUBE TP SCH (23:56)
[2018-07-01] MEDS: CYCLOBENZAPRINE HCL 10 MG TABLET (FP) PO SCH ×3 (06:25→21:40)
[2018-07-01] MEDS: ATENOLOL 50 MG TABLET (FP) PO SCH (10:15)
[2018-07-01] MEDS: amLODIPine BESYLATE 10 MG TABLET (FP) PO SCH (10:15)
[2018-07-01] MEDS: DULoxetine HCL 60 MG CAPSULE.DR PO SCH (10:15)
[2018-07-01] MEDS: LIDOCAINE 5% TOPICAL PATCH TP SCH (10:16)
[2018-07-01] MEDS: NAPROXEN 500 MG TABLET (FP) PO SCH ×2 (10:16→21:42)
[2018-07-01] MEDS: PRENATAL VITAMINS W/ FOLIC ACID TABLET (FP) PO SCH (10:16)
[2018-07-01] MEDS: LITHIUM CARBONATE 300 MG CAPSULE (FP) PO SCH ×2 (10:16→21:40)
[2018-07-01] MEDS: traZODone HCL 100 MG TABLET (FP) PO SCH (21:39)
[2018-07-01] MEDS: THIAMINE HCL 100 MG TABLET (FP) PO SCH (21:40)
[2018-07-01] MEDS: QUEtiapine FUMARATE 300 MG TABLET PO SCH (21:40)
[2018-07-01] MEDS: LIDOCAINE PATCH REMOVAL MC SCH (21:40)
[2018-07-01] MEDS: METHYL SALICYLATE/MENTHOL OINT 30 GM TUBE TP SCH (23:49)
[2018-07-02] MEDS: CYCLOBENZAPRINE HCL 10 MG TABLET (FP) PO SCH ×3 (06:12→21:43)
[2018-07-02] MEDS: DULoxetine HCL 60 MG CAPSULE.DR PO SCH (10:08)
[2018-07-02] MEDS: LITHIUM CARBONATE 300 MG CAPSULE (FP) PO SCH ×2 (10:08→21:43)
[2018-07-02] MEDS: PRENATAL VITAMINS W/ FOLIC ACID TABLET (FP) PO SCH (10:08)
[2018-07-02] MEDS: ATENOLOL 50 MG TABLET (FP) PO SCH (10:08)
[2018-07-02] MEDS: LIDOCAINE 5% TOPICAL PATCH TP SCH (10:08)
[2018-07-02] MEDS: NAPROXEN 500 MG TABLET (FP) PO SCH ×2 (10:08→21:43)
[2018-07-02] MEDS: amLODIPine BESYLATE 10 MG TABLET (FP) PO SCH (10:08)
[2018-07-02] MEDS: traZODone HCL 100 MG TABLET (FP) PO SCH (21:43)
[2018-07-02] MEDS: QUEtiapine FUMARATE 300 MG TABLET PO SCH (21:43)
[2018-07-02] MEDS: LIDOCAINE PATCH REMOVAL MC SCH (21:44)
[2018-07-02] MEDS: THIAMINE HCL 100 MG TABLET (FP) PO SCH (21:44)
[2018-07-02] MEDS: METHYL SALICYLATE/MENTHOL OINT 30 GM TUBE TP SCH (23:03)
[2018-07-03] MEDS: CYCLOBENZAPRINE HCL 10 MG TABLET (FP) PO SCH ×3 (06:18→21:31)
[2018-07-03] MEDS: NAPROXEN 500 MG TABLET (FP) PO SCH ×2 (10:15→21:31)
[2018-07-03] MEDS: DULoxetine HCL 60 MG CAPSULE.DR PO SCH (10:15)
[2018-07-03] MEDS: LITHIUM CARBONATE 300 MG CAPSULE (FP) PO SCH ×2 (10:15→21:31)
[2018-07-03] MEDS: LIDOCAINE 5% TOPICAL PATCH TP SCH (10:15)
[2018-07-03] MEDS: PRENATAL VITAMINS W/ FOLIC ACID TABLET (FP) PO SCH (10:15)
[2018-07-03] MEDS: amLODIPine BESYLATE 10 MG TABLET (FP) PO SCH (10:16)
[2018-07-03] MEDS: ATENOLOL 50 MG TABLET (FP) PO SCH (10:16)
[2018-07-03] MEDS: LIDOCAINE PATCH REMOVAL MC SCH (21:31)
[2018-07-03] MEDS: QUEtiapine FUMARATE 300 MG TABLET PO SCH (21:31)
[2018-07-03] MEDS: THIAMINE HCL 100 MG TABLET (FP) PO SCH (21:31)
[2018-07-03] MEDS: traZODone HCL 100 MG TABLET (FP) PO SCH (21:31)
[2018-07-03] MEDS: METHYL SALICYLATE/MENTHOL OINT 30 GM TUBE TP SCH (22:53)
[2018-07-04] MEDS: CYCLOBENZAPRINE HCL 10 MG TABLET (FP) PO SCH ×3 (06:20→22:00)
[2018-07-04] MEDS: PRENATAL VITAMINS W/ FOLIC ACID TABLET (FP) PO SCH (10:40)
[2018-07-04] MEDS: LITHIUM CARBONATE 300 MG CAPSULE (FP) PO SCH ×2 (10:40→22:01)
[2018-07-04] MEDS: ATENOLOL 50 MG TABLET (FP) PO SCH (10:41)
[2018-07-04] MEDS: amLODIPine BESYLATE 10 MG TABLET (FP) PO SCH (10:41)
[2018-07-04] MEDS: NAPROXEN 500 MG TABLET (FP) PO SCH ×2 (10:41→22:01)
[2018-07-04] MEDS: DULoxetine HCL 60 MG CAPSULE.DR PO SCH (10:41)
[2018-07-04] MEDS: LIDOCAINE 5% TOPICAL PATCH TP SCH (10:41)
[2018-07-04] MEDS: METHYL SALICYLATE/MENTHOL OINT 30 GM TUBE TP SCH (21:04)
[2018-07-04] MEDS: THIAMINE HCL 100 MG TABLET (FP) PO SCH (22:00)
[2018-07-04] MEDS: QUEtiapine FUMARATE 300 MG TABLET PO SCH (22:01)
[2018-07-04] MEDS: traZODone HCL 100 MG TABLET (FP) PO SCH (22:01)
[2018-07-04] MEDS: LIDOCAINE PATCH REMOVAL MC SCH (22:34)
[2018-07-05] MEDS: CYCLOBENZAPRINE HCL 10 MG TABLET (FP) PO SCH ×3 (06:04→21:54)
[2018-07-05] MEDS: DULoxetine HCL 60 MG CAPSULE.DR PO SCH (10:20)
[2018-07-05] MEDS: LITHIUM CARBONATE 300 MG CAPSULE (FP) PO SCH ×2 (10:20→21:54)
[2018-07-05] MEDS: NAPROXEN 500 MG TABLET (FP) PO SCH ×2 (10:20→21:54)
[2018-07-05] MEDS: amLODIPine BESYLATE 10 MG TABLET (FP) PO SCH (10:20)
[2018-07-05] MEDS: PRENATAL VITAMINS W/ FOLIC ACID TABLET (FP) PO SCH (10:20)
[2018-07-05] MEDS: LIDOCAINE 5% TOPICAL PATCH TP SCH (10:21)
[2018-07-05] MEDS: ATENOLOL 50 MG TABLET (FP) PO SCH (10:21)
[2018-07-05] MEDS: traZODone HCL 100 MG TABLET (FP) PO SCH (21:54)
[2018-07-05] MEDS: QUEtiapine FUMARATE 300 MG TABLET PO SCH (21:54)
[2018-07-05] MEDS: THIAMINE HCL 100 MG TABLET (FP) PO SCH (21:55)
[2018-07-05] MEDS: LIDOCAINE PATCH REMOVAL MC SCH (21:56)
[2018-07-05] MEDS: METHYL SALICYLATE/MENTHOL OINT 30 GM TUBE TP SCH (21:57)
[2018-07-06] MEDS: CYCLOBENZAPRINE HCL 10 MG TABLET (FP) PO SCH ×3 (06:19→21:48)
[2018-07-06] MEDS: PRENATAL VITAMINS W/ FOLIC ACID TABLET (FP) PO SCH (10:25)
[2018-07-06] MEDS: amLODIPine BESYLATE 10 MG TABLET (FP) PO SCH (10:25)
[2018-07-06] MEDS: NAPROXEN 500 MG TABLET (FP) PO SCH ×2 (10:25→21:48)
[2018-07-06] MEDS: DULoxetine HCL 60 MG CAPSULE.DR PO SCH (10:25)
[2018-07-06] MEDS: LITHIUM CARBONATE 300 MG CAPSULE (FP) PO SCH ×2 (10:25→21:48)
[2018-07-06] MEDS: ATENOLOL 50 MG TABLET (FP) PO SCH (10:26)
[2018-07-06] MEDS: LIDOCAINE 5% TOPICAL PATCH TP SCH (10:27)
[2018-07-06] MEDS: THIAMINE HCL 100 MG TABLET (FP) PO SCH (21:48)
[2018-07-06] MEDS: QUEtiapine FUMARATE 300 MG TABLET PO SCH (21:48)
[2018-07-06] MEDS: METHYL SALICYLATE/MENTHOL OINT 30 GM TUBE TP SCH (21:48)
[2018-07-06] MEDS: traZODone HCL 100 MG TABLET (FP) PO SCH (21:48)
[2018-07-06] MEDS: LIDOCAINE PATCH REMOVAL MC SCH (21:49)
[2018-07-07] MEDS: CYCLOBENZAPRINE HCL 10 MG TABLET (FP) PO SCH ×3 (06:08→21:40)
[2018-07-07] MEDS: NAPROXEN 500 MG TABLET (FP) PO SCH ×2 (10:33→21:40)
[2018-07-07] MEDS: ATENOLOL 50 MG TABLET (FP) PO SCH (10:33)
[2018-07-07] MEDS: LITHIUM CARBONATE 300 MG CAPSULE (FP) PO SCH ×2 (10:33→21:40)
[2018-07-07] MEDS: PRENATAL VITAMINS W/ FOLIC ACID TABLET (FP) PO SCH (10:33)
[2018-07-07] MEDS: DULoxetine HCL 60 MG CAPSULE.DR PO SCH (10:33)
[2018-07-07] MEDS: amLODIPine BESYLATE 10 MG TABLET (FP) PO SCH (10:33)
[2018-07-07] MEDS: LIDOCAINE 5% TOPICAL PATCH TP SCH (10:33)
[2018-07-07] MEDS: traZODone HCL 100 MG TABLET (FP) PO SCH (21:40)
[2018-07-07] MEDS: METHYL SALICYLATE/MENTHOL OINT 30 GM TUBE TP SCH (21:40)
[2018-07-07] MEDS: THIAMINE HCL 100 MG TABLET (FP) PO SCH (21:40)
[2018-07-07] MEDS: QUEtiapine FUMARATE 300 MG TABLET PO SCH (21:40)
[2018-07-07] MEDS: LIDOCAINE PATCH REMOVAL MC SCH (21:41)
[2018-07-08] MEDS: CYCLOBENZAPRINE HCL 10 MG TABLET (FP) PO SCH ×3 (06:17→22:03)
[2018-07-08] MEDS: LIDOCAINE 5% TOPICAL PATCH TP SCH (09:59)
[2018-07-08] MEDS: ATENOLOL 50 MG TABLET (FP) PO SCH (09:59)
[2018-07-08] MEDS: DULoxetine HCL 60 MG CAPSULE.DR PO SCH (09:59)
[2018-07-08] MEDS: PRENATAL VITAMINS W/ FOLIC ACID TABLET (FP) PO SCH (09:59)
[2018-07-08] MEDS: LITHIUM CARBONATE 300 MG CAPSULE (FP) PO SCH ×2 (09:59→22:33)
[2018-07-08] MEDS: amLODIPine BESYLATE 10 MG TABLET (FP) PO SCH (09:59)
[2018-07-08] MEDS: NAPROXEN 500 MG TABLET (FP) PO SCH ×2 (09:59→22:03)
[2018-07-08] MEDS: THIAMINE HCL 100 MG TABLET (FP) PO SCH (22:02)
[2018-07-08] MEDS: QUEtiapine FUMARATE 300 MG TABLET PO SCH (22:03)
[2018-07-08] MEDS: traZODone HCL 100 MG TABLET (FP) PO SCH (22:03)
[2018-07-08] MEDS: METHYL SALICYLATE/MENTHOL OINT 30 GM TUBE TP SCH (22:32)
[2018-07-08] MEDS: LIDOCAINE PATCH REMOVAL MC SCH (22:33)
[2018-07-09] MEDS: CYCLOBENZAPRINE HCL 10 MG TABLET (FP) PO SCH ×3 (06:16→22:00)
[2018-07-09] MEDS: NAPROXEN 500 MG TABLET (FP) PO SCH ×2 (10:46→22:01)
[2018-07-09] MEDS: LIDOCAINE 5% TOPICAL PATCH TP SCH (10:47)
[2018-07-09] MEDS: ATENOLOL 50 MG TABLET (FP) PO SCH (10:47)
[2018-07-09] MEDS: LITHIUM CARBONATE 300 MG CAPSULE (FP) PO SCH ×2 (10:47→22:00)
[2018-07-09] MEDS: amLODIPine BESYLATE 10 MG TABLET (FP) PO SCH (10:47)
[2018-07-09] MEDS: DULoxetine HCL 60 MG CAPSULE.DR PO SCH (10:47)
[2018-07-09] MEDS: PRENATAL VITAMINS W/ FOLIC ACID TABLET (FP) PO SCH (10:47)
[2018-07-09] MEDS: LIDOCAINE PATCH REMOVAL MC SCH (22:00)
[2018-07-09] MEDS: traZODone HCL 100 MG TABLET (FP) PO SCH (22:00)
[2018-07-09] MEDS: METHYL SALICYLATE/MENTHOL OINT 30 GM TUBE TP SCH (22:00)
[2018-07-09] MEDS: THIAMINE HCL 100 MG TABLET (FP) PO SCH (22:00)
[2018-07-09] MEDS: QUEtiapine FUMARATE 300 MG TABLET PO SCH (22:00)
[2018-07-09] MEDS: MELATONIN 5 MG TABLETS PO PRN (22:02)
[2018-07-10] MEDS: CYCLOBENZAPRINE HCL 10 MG TABLET (FP) PO SCH ×3 (07:19→21:51)
[2018-07-10] MEDS: ATENOLOL 50 MG TABLET (FP) PO SCH (10:44)
[2018-07-10] MEDS: DULoxetine HCL 60 MG CAPSULE.DR PO SCH (10:44)
[2018-07-10] MEDS: NAPROXEN 500 MG TABLET (FP) PO SCH ×2 (10:44→21:51)
[2018-07-10] MEDS: amLODIPine BESYLATE 10 MG TABLET (FP) PO SCH (10:45)
[2018-07-10] MEDS: LIDOCAINE 5% TOPICAL PATCH TP SCH (10:45)
[2018-07-10] MEDS: PRENATAL VITAMINS W/ FOLIC ACID TABLET (FP) PO SCH (10:45)
[2018-07-10] MEDS: LITHIUM CARBONATE 300 MG CAPSULE (FP) PO SCH ×2 (10:45→21:51)
[2018-07-10] MEDS: QUEtiapine FUMARATE 300 MG TABLET PO SCH (21:51)
[2018-07-10] MEDS: THIAMINE HCL 100 MG TABLET (FP) PO SCH (21:51)
[2018-07-10] MEDS: traZODone HCL 100 MG TABLET (FP) PO SCH (21:51)
[2018-07-10] MEDS: MELATONIN 5 MG TABLETS PO PRN (21:52)
[2018-07-10] MEDS: METHYL SALICYLATE/MENTHOL OINT 30 GM TUBE TP SCH (21:53)
[2018-07-10] MEDS: LIDOCAINE PATCH REMOVAL MC SCH (21:53)
[2018-07-11] MEDS: CYCLOBENZAPRINE HCL 10 MG TABLET (FP) PO SCH ×3 (07:15→21:48)
[2018-07-11] MEDS: PRENATAL VITAMINS W/ FOLIC ACID TABLET (FP) PO SCH (10:30)
[2018-07-11] MEDS: DULoxetine HCL 60 MG CAPSULE.DR PO SCH (10:30)
[2018-07-11] MEDS: amLODIPine BESYLATE 10 MG TABLET (FP) PO SCH (10:30)
[2018-07-11] MEDS: LITHIUM CARBONATE 300 MG CAPSULE (FP) PO SCH ×2 (10:30→21:47)
[2018-07-11] MEDS: NAPROXEN 500 MG TABLET (FP) PO SCH ×2 (10:30→21:48)
[2018-07-11] MEDS: ATENOLOL 50 MG TABLET (FP) PO SCH (10:31)
[2018-07-11] MEDS: LIDOCAINE 5% TOPICAL PATCH TP SCH (10:31)
[2018-07-11] MEDS: QUEtiapine FUMARATE 300 MG TABLET PO SCH (21:48)
[2018-07-11] MEDS: traZODone HCL 100 MG TABLET (FP) PO SCH (21:48)
[2018-07-11] MEDS: LIDOCAINE PATCH REMOVAL MC SCH (21:48)
[2018-07-11] MEDS: THIAMINE HCL 100 MG TABLET (FP) PO SCH (21:48)
[2018-07-11] MEDS: METHYL SALICYLATE/MENTHOL OINT 30 GM TUBE TP SCH (21:48)
[2018-07-12] MEDS: CYCLOBENZAPRINE HCL 10 MG TABLET (FP) PO SCH ×3 (07:04→21:46)
[2018-07-12] MEDS: ATENOLOL 50 MG TABLET (FP) PO SCH (10:50)
[2018-07-12] MEDS: LITHIUM CARBONATE 300 MG CAPSULE (FP) PO SCH ×2 (10:51→21:46)
[2018-07-12] MEDS: NAPROXEN 500 MG TABLET (FP) PO SCH ×2 (10:51→21:46)
[2018-07-12] MEDS: DULoxetine HCL 60 MG CAPSULE.DR PO SCH (10:51)
[2018-07-12] MEDS: amLODIPine BESYLATE 10 MG TABLET (FP) PO SCH (10:51)
[2018-07-12] MEDS: PRENATAL VITAMINS W/ FOLIC ACID TABLET (FP) PO SCH (10:51)
[2018-07-12] MEDS: LIDOCAINE 5% TOPICAL PATCH TP SCH (11:14)
[2018-07-12] MEDS: MELATONIN 5 MG TABLETS PO PRN (21:46)
[2018-07-12] MEDS: QUEtiapine FUMARATE 300 MG TABLET PO SCH (21:46)
[2018-07-12] MEDS: traZODone HCL 100 MG TABLET (FP) PO SCH (21:46)
[2018-07-12] MEDS: THIAMINE HCL 100 MG TABLET (FP) PO SCH (21:46)
[2018-07-12] MEDS: LIDOCAINE PATCH REMOVAL MC SCH (21:48)
[2018-07-12] MEDS: METHYL SALICYLATE/MENTHOL OINT 30 GM TUBE TP SCH (21:48)
[2018-07-13] MEDS: CYCLOBENZAPRINE HCL 10 MG TABLET (FP) PO SCH ×3 (06:17→21:33)
[2018-07-13] MEDS: amLODIPine BESYLATE 10 MG TABLET (FP) PO SCH (10:43)
[2018-07-13] MEDS: DULoxetine HCL 60 MG CAPSULE.DR PO SCH (10:43)
[2018-07-13] MEDS: LITHIUM CARBONATE 300 MG CAPSULE (FP) PO SCH ×2 (10:43→21:33)
[2018-07-13] MEDS: PRENATAL VITAMINS W/ FOLIC ACID TABLET (FP) PO SCH (10:43)
[2018-07-13] MEDS: NAPROXEN 500 MG TABLET (FP) PO SCH ×2 (10:43→21:33)
[2018-07-13] MEDS: LIDOCAINE 5% TOPICAL PATCH TP SCH (10:43)
[2018-07-13] MEDS: ATENOLOL 50 MG TABLET (FP) PO SCH (10:43)
[2018-07-13] MEDS: LIDOCAINE PATCH REMOVAL MC SCH (21:33)
[2018-07-13] MEDS: QUEtiapine FUMARATE 300 MG TABLET PO SCH (21:33)
[2018-07-13] MEDS: THIAMINE HCL 100 MG TABLET (FP) PO SCH (21:33)
[2018-07-13] MEDS: METHYL SALICYLATE/MENTHOL OINT 30 GM TUBE TP SCH (21:33)
[2018-07-13] MEDS: traZODone HCL 100 MG TABLET (FP) PO SCH (21:33)
[2018-07-13] MEDS: MELATONIN 5 MG TABLETS PO PRN (21:34)
[2018-07-14] MEDS: CYCLOBENZAPRINE HCL 10 MG TABLET (FP) PO SCH ×3 (06:31→21:44)
[2018-07-14] MEDS: LITHIUM CARBONATE 300 MG CAPSULE (FP) PO SCH ×2 (09:57→21:44)
[2018-07-14] MEDS: NAPROXEN 500 MG TABLET (FP) PO SCH ×2 (09:57→21:44)
[2018-07-14] MEDS: amLODIPine BESYLATE 10 MG TABLET (FP) PO SCH (09:57)
[2018-07-14] MEDS: PRENATAL VITAMINS W/ FOLIC ACID TABLET (FP) PO SCH (09:57)
[2018-07-14] MEDS: DULoxetine HCL 60 MG CAPSULE.DR PO SCH (09:57)
[2018-07-14] MEDS: ATENOLOL 50 MG TABLET (FP) PO SCH (09:57)
[2018-07-14] MEDS: LIDOCAINE 5% TOPICAL PATCH TP SCH (09:58)
[2018-07-14] MEDS: MELATONIN 5 MG TABLETS PO PRN (21:44)
[2018-07-14] MEDS: QUEtiapine FUMARATE 300 MG TABLET PO SCH (21:44)
[2018-07-14] MEDS: THIAMINE HCL 100 MG TABLET (FP) PO SCH (21:44)
[2018-07-14] MEDS: traZODone HCL 100 MG TABLET (FP) PO SCH (21:44)
[2018-07-14] MEDS: LIDOCAINE PATCH REMOVAL MC SCH (21:46)
[2018-07-14] MEDS: METHYL SALICYLATE/MENTHOL OINT 30 GM TUBE TP SCH (21:46)
[2018-07-15] MEDS: CYCLOBENZAPRINE HCL 10 MG TABLET (FP) PO SCH ×3 (06:44→21:39)
[2018-07-15] MEDS: DULoxetine HCL 60 MG CAPSULE.DR PO SCH (10:00)
[2018-07-15] MEDS: NAPROXEN 500 MG TABLET (FP) PO SCH ×2 (10:00→21:39)
[2018-07-15] MEDS: PRENATAL VITAMINS W/ FOLIC ACID TABLET (FP) PO SCH (10:00)
[2018-07-15] MEDS: amLODIPine BESYLATE 10 MG TABLET (FP) PO SCH (10:00)
[2018-07-15] MEDS: ATENOLOL 50 MG TABLET (FP) PO SCH (10:00)
[2018-07-15] MEDS: LIDOCAINE 5% TOPICAL PATCH TP SCH (10:00)
[2018-07-15] MEDS: LITHIUM CARBONATE 300 MG CAPSULE (FP) PO SCH ×2 (10:01→21:52)
[2018-07-15] MEDS: MELATONIN 5 MG TABLETS PO PRN (21:39)
[2018-07-15] MEDS: THIAMINE HCL 100 MG TABLET (FP) PO SCH (21:39)
[2018-07-15] MEDS: traZODone HCL 100 MG TABLET (FP) PO SCH (21:39)
[2018-07-15] MEDS: QUEtiapine FUMARATE 300 MG TABLET PO SCH (21:39)
[2018-07-15] MEDS: METHYL SALICYLATE/MENTHOL OINT 30 GM TUBE TP SCH (21:40)
[2018-07-15] MEDS: LIDOCAINE PATCH REMOVAL MC SCH (21:40)
[2018-07-16] MEDS: CYCLOBENZAPRINE HCL 10 MG TABLET (FP) PO SCH ×3 (06:49→21:39)
[2018-07-16] MEDS: LITHIUM CARBONATE 300 MG CAPSULE (FP) PO SCH ×2 (10:38→21:39)
[2018-07-16] MEDS: PRENATAL VITAMINS W/ FOLIC ACID TABLET (FP) PO SCH (10:38)
[2018-07-16] MEDS: DULoxetine HCL 60 MG CAPSULE.DR PO SCH (10:38)
[2018-07-16] MEDS: amLODIPine BESYLATE 10 MG TABLET (FP) PO SCH (10:38)
[2018-07-16] MEDS: NAPROXEN 500 MG TABLET (FP) PO SCH ×2 (10:38→21:39)
[2018-07-16] MEDS: ATENOLOL 50 MG TABLET (FP) PO SCH (10:38)
[2018-07-16] MEDS: LIDOCAINE 5% TOPICAL PATCH TP SCH (10:39)
[2018-07-16] MEDS: QUEtiapine FUMARATE 300 MG TABLET PO SCH (21:39)
[2018-07-16] MEDS: MELATONIN 5 MG TABLETS PO PRN (21:39)
[2018-07-16] MEDS: THIAMINE HCL 100 MG TABLET (FP) PO SCH (21:39)
[2018-07-16] MEDS: traZODone HCL 100 MG TABLET (FP) PO SCH (21:39)
[2018-07-16] MEDS: LIDOCAINE PATCH REMOVAL MC SCH (21:40)
[2018-07-16] MEDS: METHYL SALICYLATE/MENTHOL OINT 30 GM TUBE TP SCH (21:41)
[2018-07-17] MEDS: CYCLOBENZAPRINE HCL 10 MG TABLET (FP) PO SCH ×3 (07:33→21:49)
[2018-07-17] MEDS: LIDOCAINE 5% TOPICAL PATCH TP SCH (10:42)
[2018-07-17] MEDS: LITHIUM CARBONATE 300 MG CAPSULE (FP) PO SCH ×2 (10:42→21:49)
[2018-07-17] MEDS: DULoxetine HCL 60 MG CAPSULE.DR PO SCH (10:42)
[2018-07-17] MEDS: ATENOLOL 50 MG TABLET (FP) PO SCH (10:43)
[2018-07-17] MEDS: PRENATAL VITAMINS W/ FOLIC ACID TABLET (FP) PO SCH (10:43)
[2018-07-17] MEDS: amLODIPine BESYLATE 10 MG TABLET (FP) PO SCH (10:43)
[2018-07-17] MEDS: NAPROXEN 500 MG TABLET (FP) PO SCH ×2 (10:43→21:49)
[2018-07-17] MEDS: THIAMINE HCL 100 MG TABLET (FP) PO SCH (21:48)
[2018-07-17] MEDS: QUEtiapine FUMARATE 300 MG TABLET PO SCH (21:49)
[2018-07-17] MEDS: METHYL SALICYLATE/MENTHOL OINT 30 GM TUBE TP SCH (21:49)
[2018-07-17] MEDS: traZODone HCL 100 MG TABLET (FP) PO SCH (21:49)
[2018-07-17] MEDS: LIDOCAINE PATCH REMOVAL MC SCH (21:49)
[2018-07-17] MEDS: MELATONIN 5 MG TABLETS PO PRN (21:50)
[2018-07-18] MEDS: CYCLOBENZAPRINE HCL 10 MG TABLET (FP) PO SCH ×3 (07:22→21:39)
[2018-07-18] MEDS: NAPROXEN 500 MG TABLET (FP) PO SCH ×2 (10:26→21:39)
[2018-07-18] MEDS: PRENATAL VITAMINS W/ FOLIC ACID TABLET (FP) PO SCH (10:26)
[2018-07-18] MEDS: DULoxetine HCL 60 MG CAPSULE.DR PO SCH (10:26)
[2018-07-18] MEDS: amLODIPine BESYLATE 10 MG TABLET (FP) PO SCH (10:26)
[2018-07-18] MEDS: ATENOLOL 50 MG TABLET (FP) PO SCH (10:27)
[2018-07-18] MEDS: LITHIUM CARBONATE 300 MG CAPSULE (FP) PO SCH ×2 (10:27→21:39)
[2018-07-18] MEDS: LIDOCAINE 5% TOPICAL PATCH TP SCH (10:28)
[2018-07-18] MEDS: METHYL SALICYLATE/MENTHOL OINT 30 GM TUBE TP SCH (21:39)
[2018-07-18] MEDS: traZODone HCL 100 MG TABLET (FP) PO SCH (21:39)
[2018-07-18] MEDS: QUEtiapine FUMARATE 300 MG TABLET PO SCH (21:39)
[2018-07-18] MEDS: MELATONIN 5 MG TABLETS PO PRN (21:40)
[2018-07-18] MEDS: THIAMINE HCL 100 MG TABLET (FP) PO SCH (21:40)
[2018-07-18] MEDS: LIDOCAINE PATCH REMOVAL MC SCH (22:06)
[2018-07-19] MEDS: CYCLOBENZAPRINE HCL 10 MG TABLET (FP) PO SCH (06:50)
[2018-07-19] MEDS: ATENOLOL 50 MG TABLET (FP) PO SCH (10:43)
[2018-07-19] MEDS: DULoxetine HCL 60 MG CAPSULE.DR PO SCH (10:43)
[2018-07-19] MEDS: LIDOCAINE 5% TOPICAL PATCH TP SCH (10:43)
[2018-07-19] MEDS: NAPROXEN 500 MG TABLET (FP) PO SCH (10:43)
[2018-07-19] MEDS: PRENATAL VITAMINS W/ FOLIC ACID TABLET (FP) PO SCH (10:43)
[2018-07-19] MEDS: LITHIUM CARBONATE 300 MG CAPSULE (FP) PO SCH ×2 (10:43→21:40)
[2018-07-19] MEDS: amLODIPine BESYLATE 10 MG TABLET (FP) PO SCH (10:44)
--- NOTE | 2018-07-19 12:18 | PN ---
S Progress Note Note: PATIENT C/O DRY MOUTH AND SMALL SORE TO BOTTOM LIP. Vital Signs Temperature 98.5 F 07/19/18 07:14 Pulse Rate 90 07/19/18 07:14 Respiratory Rate 18 07/19/18 07:14 Blood Pressure 115/59 L 07/19/18 07:14 O2 Sat by Pulse Oximetry (%) MOUTH: ORAL MUCOSA PINK, MOIST SMALL CHANCRE SORE INSIDE BOTTOM LIP NO LESIONS OR ULCERS A/P; DRY MOUTH CHANCRE SORE WILL D/C FLEXERIL AND NAPROSYN PATIENT STATE HE DOESN'T NEED AND FEELS SX WORSENED AFTER STARTING MEDICATION INCREASE ORAL FLUIDS PERIDEX MM CONTINUE TO MONITOR
[2018-07-19] MEDS: CHLORHEXIDINE GLUCONATE 118 ML MOUTHWASH MM SCH ×2 (13:30→21:40)
[2018-07-19] MEDS: THIAMINE HCL 100 MG TABLET (FP) PO SCH (21:40)
[2018-07-19] MEDS: METHYL SALICYLATE/MENTHOL OINT 30 GM TUBE TP SCH (21:40)
[2018-07-19] MEDS: QUEtiapine FUMARATE 300 MG TABLET PO SCH (21:40)
[2018-07-19] MEDS: MELATONIN 5 MG TABLETS PO PRN (21:40)
[2018-07-19] MEDS: traZODone HCL 100 MG TABLET (FP) PO SCH (21:40)
[2018-07-19] MEDS: LIDOCAINE PATCH REMOVAL MC SCH (21:41)
[2018-07-20] MEDS: DULoxetine HCL 60 MG CAPSULE.DR PO SCH (10:23)
[2018-07-20] MEDS: LITHIUM CARBONATE 300 MG CAPSULE (FP) PO SCH ×2 (10:23→21:41)
[2018-07-20] MEDS: CHLORHEXIDINE GLUCONATE 118 ML MOUTHWASH MM SCH ×2 (10:23→21:41)
[2018-07-20] MEDS: PRENATAL VITAMINS W/ FOLIC ACID TABLET (FP) PO SCH (10:23)
[2018-07-20] MEDS: LIDOCAINE 5% TOPICAL PATCH TP SCH (10:24)
[2018-07-20] MEDS: ATENOLOL 50 MG TABLET (FP) PO SCH (10:24)
[2018-07-20] MEDS: amLODIPine BESYLATE 10 MG TABLET (FP) PO SCH (10:25)
[2018-07-20] MEDS: METHYL SALICYLATE/MENTHOL OINT 30 GM TUBE TP SCH (21:41)
[2018-07-20] MEDS: QUEtiapine FUMARATE 300 MG TABLET PO SCH (21:42)
[2018-07-20] MEDS: LIDOCAINE PATCH REMOVAL MC SCH (21:42)
[2018-07-20] MEDS: MELATONIN 5 MG TABLETS PO PRN (21:42)
[2018-07-20] MEDS: THIAMINE HCL 100 MG TABLET (FP) PO SCH (21:42)
[2018-07-20] MEDS: traZODone HCL 100 MG TABLET (FP) PO SCH (21:42)
[2018-07-21] MEDS: DULoxetine HCL 60 MG CAPSULE.DR PO SCH (10:20)
[2018-07-21] MEDS: amLODIPine BESYLATE 10 MG TABLET (FP) PO SCH (10:20)
[2018-07-21] MEDS: CHLORHEXIDINE GLUCONATE 118 ML MOUTHWASH MM SCH ×2 (10:20→21:45)
[2018-07-21] MEDS: LITHIUM CARBONATE 300 MG CAPSULE (FP) PO SCH ×2 (10:20→21:43)
[2018-07-21] MEDS: PRENATAL VITAMINS W/ FOLIC ACID TABLET (FP) PO SCH (10:20)
[2018-07-21] MEDS: ATENOLOL 50 MG TABLET (FP) PO SCH (10:20)
[2018-07-21] MEDS: LIDOCAINE 5% TOPICAL PATCH TP SCH (10:21)
[2018-07-21] MEDS: THIAMINE HCL 100 MG TABLET (FP) PO SCH (21:43)
[2018-07-21] MEDS: MELATONIN 5 MG TABLETS PO PRN (21:44)
[2018-07-21] MEDS: QUEtiapine FUMARATE 300 MG TABLET PO SCH (21:44)
[2018-07-21] MEDS: METHYL SALICYLATE/MENTHOL OINT 30 GM TUBE TP SCH (21:44)
[2018-07-21] MEDS: traZODone HCL 100 MG TABLET (FP) PO SCH (21:44)
[2018-07-21] MEDS: LIDOCAINE PATCH REMOVAL MC SCH (21:46)
[2018-07-22] MEDS: DULoxetine HCL 60 MG CAPSULE.DR PO SCH (09:59)
[2018-07-22] MEDS: ATENOLOL 50 MG TABLET (FP) PO SCH (09:59)
[2018-07-22] MEDS: amLODIPine BESYLATE 10 MG TABLET (FP) PO SCH (09:59)
[2018-07-22] MEDS: LIDOCAINE 5% TOPICAL PATCH TP SCH (09:59)
[2018-07-22] MEDS: LITHIUM CARBONATE 300 MG CAPSULE (FP) PO SCH ×2 (09:59→21:36)
[2018-07-22] MEDS: PRENATAL VITAMINS W/ FOLIC ACID TABLET (FP) PO SCH (09:59)
[2018-07-22] MEDS: CHLORHEXIDINE GLUCONATE 118 ML MOUTHWASH MM SCH ×2 (11:30→21:38)
[2018-07-22] MEDS: THIAMINE HCL 100 MG TABLET (FP) PO SCH (21:36)
[2018-07-22] MEDS: MELATONIN 5 MG TABLETS PO PRN (21:36)
[2018-07-22] MEDS: traZODone HCL 100 MG TABLET (FP) PO SCH (21:36)
[2018-07-22] MEDS: QUEtiapine FUMARATE 300 MG TABLET PO SCH (21:36)
[2018-07-22] MEDS: METHYL SALICYLATE/MENTHOL OINT 30 GM TUBE TP SCH (21:38)
[2018-07-22] MEDS: LIDOCAINE PATCH REMOVAL MC SCH (21:54)
[2018-07-23 07:17] VITALS: BP 130/80; PULSE 80; TEMP 99
--- NOTE | 2018-07-23 09:03 | PN ---
S Progress Note Note: Patient completed this program today and will continue gto adddress his issues on outpatient basois.Scripts for 30 days provided.Patient is stable for discharge today.
[2018-07-23] MEDS: DULoxetine HCL 60 MG CAPSULE.DR PO SCH (10:11)
[2018-07-23] MEDS: ATENOLOL 50 MG TABLET (FP) PO SCH (10:11)
[2018-07-23] MEDS: LITHIUM CARBONATE 300 MG CAPSULE (FP) PO SCH (10:11)
[2018-07-23] MEDS: PRENATAL VITAMINS W/ FOLIC ACID TABLET (FP) PO SCH (10:11)
[2018-07-23] MEDS: amLODIPine BESYLATE 10 MG TABLET (FP) PO SCH (10:11)
[2018-07-23] MEDS: CHLORHEXIDINE GLUCONATE 118 ML MOUTHWASH MM SCH (10:12)
[2018-07-23] MEDS: LIDOCAINE 5% TOPICAL PATCH TP SCH (10:12)
== END 2018-07-23 10:55 | disposition home or self-care (01) | DRG 772 ==
LOC: YASAS 13:51 → Y5N 13:53
PROVIDERS: ADMIT Psychiatry & Neurology Psychiatry; ATTEND Psychiatry & Neurology Psychiatry
PROC: HZ42ZZZ Group Counseling for Substance Abuse Treatment, Cognitive-Behavioral (ICD-10-PCS; principal; 2018-06-24)
DX: F10.20 Alcohol dependence, uncomplicated (principal); F17.210 Nicotine dependence, cigarettes, uncomplicated; F19.282 Other psychoactive substance dependence with psychoactive substance-induced sleep disorder; I10 Essential (primary) hypertension; B18.2 Chronic viral hepatitis C; M12.9 Arthropathy, unspecified; M54.41 Lumbago with sciatica, right side; M54.42 Lumbago with sciatica, left side; R68.2 Dry mouth, unspecified; A69.0 Necrotizing ulcerative stomatitis; Z86.69 Personal history of other diseases of the nervous system and sense organs; Z98.890 Other specified postprocedural states
CPT/HCPCS: 36415; 80178

== ENCOUNTER 2019-07-01 16:13 | Inpatient (IN) | payer OTHER ==
[2019-07-01 19:43] VITALS: BMI 23.6
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
[2019-07-01] MEDS ORDERED: METHOCARBAMOL 500 MG TABLET PO PRN (22:22)
[2019-07-01] MEDS ORDERED: MAGNESIUM CITRATE 300 ML BOTTLE PO PRN (22:22)
[2019-07-01] MEDS ORDERED: ACETAMINOPHEN 325 MG TABLET (FP) PO PRN ×2 (22:22)
[2019-07-01] MEDS ORDERED: NICOTINE POLACRILEX 2 MG GUM BUC PRN (22:22)
[2019-07-01] MEDS ORDERED: MAG HYDROX/AL HYDROX/SIMETH 30 ML UNIT-DOSE CUP PO PRN (22:22)
[2019-07-01] MEDS ORDERED: MENTHOL/PHENOL 1 EACH UD MM PRN (22:22)
[2019-07-01] MEDS ORDERED: MAGNESIUM HYDROX 2400MG/30ML ORAL SUSPENSION 30 ML CUP PO PRN (22:22)
[2019-07-01] MEDS ORDERED: chlordiazePOXIDE HCL 25 MG CAPSULE PO PRN (22:22)
[2019-07-01] MEDS ORDERED: BISMUTH SUBSALICYLATE 524 MG/30 ML UD PO PRN (22:22)
[2019-07-01] MEDS ORDERED: hydrOXYzine PAMOATE 25 MG CAPSULE (FP) PO PRN (22:22)
[2019-07-01] MEDS: chlordiazePOXIDE HCL 25 MG CAPSULE PO SCH (23:44)
[2019-07-01] MEDS: MELATONIN 5 MG TABLETS PO PRN (23:47)
[2019-07-02] MEDS: chlordiazePOXIDE HCL 25 MG CAPSULE PO SCH ×4 (05:56→22:23)
[2019-07-02] MEDS: amLODIPine BESYLATE 10 MG TABLET (FP) PO SCH (10:28)
[2019-07-02] MEDS: ATENOLOL 50 MG TABLET (FP) PO SCH (10:28)
[2019-07-02] MEDS: NICOTINE 14 MG/24 HOURS TOPICAL PATCH TD SCH (10:28)
[2019-07-02] MEDS: PRENATAL VITAMINS W/ FOLIC ACID TABLET (FP) PO SCH (10:28)
--- NOTE | 2019-07-02 11:40 | PN ---
S CIWA - CIWA Score Nausea/Vomitin-No Nausea/No Vomiting Muscle Tremors: 3 Anxiety: 3 Agitation: 3 Paroxysmal Sweats: 2 Orientation: 0-Oriented Tacttile Disturbances: 0-None Auditory Disturbances: 0-None Visual Disturbances: 0-None Headache: 0-None Present CIWA-Ar Total Score: 11 [facility] Progress Note (SOAP) Subjective: sweats shakes interrupted sleep anxiety body aches Objective: 07/02/19 11:39 Vital Signs Temperature 98.1 F 07/02/19 09:56 Pulse Rate 87 07/02/19 09:56 Respiratory Rate 18 07/02/19 09:56 Blood Pressure 128/87 07/02/19 09:56 O2 Sat by Pulse Oximetry (%) labs pending aaox3 ambulating no acute distress Assessment: 07/02/19 11:39 withdrawals Plan: continue detox increase fluids
[2019-07-02 12:02] LABS: HEMATOCRIT 43.7 % (35.4-49); HEMOGLOBIN 13.8 GM/dL (11.7-16.9); MCH 27.9 pg (25.7-33.7); MCHC 31.6 g/dl (32.0-35.9); MEAN CELL VOLUME 88.3 fl (80-96); PLATELET COUNT 218 K/MM3 (134-434); RBC 4.95 M/mm3 (4.00-5.60); RDW 15.1 % (11.9-15.9); WHITE BLOOD COUNT 3.5 K/mm3 (4.0-10.0)
[2019-07-02 12:23] LABS: ALBUMIN 3.7 g/dl (3.4-5.0); BILIRUBIN,TOTAL 0.3 mg/dL (0.2-1); BLOOD UREA NITROGEN 16.2 mg/dL (7-18); CALCIUM 8.6 mg/dL (8.5-10.1); CREATININE 0.9 mg/dL (0.55-1.3); POTASSIUM 4.4 mmol/L (3.5-5.1); TOT PROT 7.1 g/dl (6.4-8.2)
--- NOTE | 2019-07-02 13:34 | EKG ---
Test Reason : Blood Pressure : / mmHG Vent. Rate : 076 BPM Atrial Rate : 076 BPM P-R Int : 178 ms QRS Dur : 094 ms QT Int : 390 ms P-R-T Axes : 051 050 012 degrees QTc Int : 438 ms NORMAL SINUS RHYTHM MINIMAL VOLTAGE CRITERIA FOR LVH, MAY BE NORMAL VARIANT NONSPECIFIC T WAVE ABNORMALITY ABNORMAL ECG Confirmed by MD Dex, Kalia ([id number]) on 07/02/2019 1:34:06 PM Referred By: Confirmed By:Kalia Kowalski MD
[2019-07-02] MEDS: KETOCONOZOLE 2% TOPICAL CREAM 15 GM TUBE TP SCH (16:14)
[2019-07-02] MEDS: MELATONIN 5 MG TABLETS PO PRN (22:21)
[2019-07-02] MEDS: THIAMINE HCL 100 MG TABLET (FP) PO SCH (22:21)
[2019-07-02] MEDS ORDERED: MELATONIN 5 MG TABLETS PO ONE (22:28)
[2019-07-03] MEDS: chlordiazePOXIDE HCL 25 MG CAPSULE PO SCH ×4 (06:35→22:51)
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
[2019-07-03] MEDS: amLODIPine BESYLATE 10 MG TABLET (FP) PO SCH (10:10)
[2019-07-03] MEDS: PRENATAL VITAMINS W/ FOLIC ACID TABLET (FP) PO SCH (10:10)
[2019-07-03] MEDS: NICOTINE 14 MG/24 HOURS TOPICAL PATCH TD SCH (10:11)
[2019-07-03] MEDS: SERTRALINE HCL 50 MG TABLET (FP) PO SCH (10:11)
--- NOTE | 2019-07-03 11:12 | PN ---
S CIWA - CIWA Score Nausea/Vomitin-No Nausea/No Vomiting Muscle Tremors: 2 Anxiety: 2 Agitation: 2 Paroxysmal Sweats: 2 Orientation: 0-Oriented Tacttile Disturbances: 0-None Auditory Disturbances: 0-None Visual Disturbances: 0-None Headache: 0-None Present CIWA-Ar Total Score: 8 [facility] Progress Note (SOAP) Subjective: sweats shakes interrupted sleep Objective: 07/03/19 11:11 Vital Signs Temperature 97.9 F 07/03/19 09:23 Pulse Rate 71 07/03/19 09:23 Respiratory Rate 16 07/03/19 09:23 Blood Pressure 126/78 07/03/19 09:23 O2 Sat by Pulse Oximetry (%) Laboratory Tests 07/02/19 07/02/19 07/02/19 08:40 08:40 08:40 WBC 3.5 L RBC 4.95 Hgb 13.8 Hct 43.7 MCV 88.3 MCH 27.9 MCHC 31.6 L RDW 15.1 Plt Count 218 D MPV 9.0 Sodium 144 Potassium 4.4 Chloride 109 H Carbon Dioxide 29 Anion Gap 6 L BUN 16.2 Creatinine 0.9 Est GFR (CKD-EPI)AfAm 112.62 Est GFR (CKD-EPI)NonAf 97.17 Random Glucose 79 Calcium 8.6 Total Bilirubin 0.3 AST 17 ALT 22 Alkaline Phosphatase 89 Total Protein 7.1 Albumin 3.7 RPR Titer Nonreactive labs noted aaox3 ambulating no acute distress Assessment: 07/03/19 11:12 withdrawals Plan: continue detox increase fluids
[2019-07-03] MEDS: KETOCONOZOLE 2% TOPICAL CREAM 15 GM TUBE TP SCH (12:51)
[2019-07-03] MEDS: ARIPiprazole 15 MG TABLET PO SCH (12:51)
[2019-07-03] MEDS: ATENOLOL 50 MG TABLET (FP) PO SCH (12:52)
[2019-07-03] MEDS: THIAMINE HCL 100 MG TABLET (FP) PO SCH (22:51)
[2019-07-03] MEDS: QUEtiapine FUMARATE 300 MG TABLET PO SCH (22:52)
[2019-07-04] MEDS ORDERED: chlordiazePOXIDE HCL 10 MG CAPSULE PO PRN
[2019-07-04] MEDS: chlordiazePOXIDE HCL 10 MG CAPSULE PO SCH ×4 (06:05→22:23)
[2019-07-04] MEDS: amLODIPine BESYLATE 10 MG TABLET (FP) PO SCH (10:36)
[2019-07-04] MEDS: ARIPiprazole 15 MG TABLET PO SCH (10:36)
[2019-07-04] MEDS: ATENOLOL 50 MG TABLET (FP) PO SCH (10:36)
[2019-07-04] MEDS: KETOCONOZOLE 2% TOPICAL CREAM 15 GM TUBE TP SCH (10:37)
[2019-07-04] MEDS: NICOTINE 14 MG/24 HOURS TOPICAL PATCH TD SCH (10:37)
[2019-07-04] MEDS: SERTRALINE HCL 50 MG TABLET (FP) PO SCH (10:39)
[2019-07-04] MEDS: PRENATAL VITAMINS W/ FOLIC ACID TABLET (FP) PO SCH (10:39)
--- NOTE | 2019-07-04 11:51 | PN ---
S CIWA - CIWA Score Nausea/Vomitin-No Nausea/No Vomiting Muscle Tremors: 2 Anxiety: 1-Mildly Anxious Agitation: 2 Paroxysmal Sweats: 1-Minimal Palms Moist Orientation: 0-Oriented Tacttile Disturbances: 0-None Auditory Disturbances: 0-None Visual Disturbances: 0-None Headache: 0-None Present CIWA-Ar Total Score: 6 [facility] Progress Note (SOAP) Subjective: sweats interrupted sleep Objective: 07/04/19 11:51 Vital Signs Temperature 97.7 F 07/04/19 09:33 Pulse Rate 86 07/04/19 09:33 Respiratory Rate 18 07/04/19 09:33 Blood Pressure 130/91 07/04/19 09:33 O2 Sat by Pulse Oximetry (%) aaox3 ambulating no acute distress Assessment: 07/04/19 11:51 withdrawals Plan: continue detox increase fluids
[2019-07-04] MEDS: THIAMINE HCL 100 MG TABLET (FP) PO SCH (22:22)
[2019-07-04] MEDS: QUEtiapine FUMARATE 300 MG TABLET PO SCH (22:23)
[2019-07-05] MEDS: chlordiazePOXIDE HCL 10 MG CAPSULE PO SCH ×2 (06:30→18:12)
[2019-07-05] MEDS: amLODIPine BESYLATE 10 MG TABLET (FP) PO SCH (10:28)
[2019-07-05] MEDS: ATENOLOL 50 MG TABLET (FP) PO SCH (10:28)
[2019-07-05] MEDS: ARIPiprazole 15 MG TABLET PO SCH (10:29)
[2019-07-05] MEDS: PRENATAL VITAMINS W/ FOLIC ACID TABLET (FP) PO SCH (10:29)
[2019-07-05] MEDS: NICOTINE 14 MG/24 HOURS TOPICAL PATCH TD SCH (10:29)
[2019-07-05] MEDS: KETOCONOZOLE 2% TOPICAL CREAM 15 GM TUBE TP SCH (10:29)
[2019-07-05] MEDS: SERTRALINE HCL 50 MG TABLET (FP) PO SCH (10:35)
--- NOTE | 2019-07-05 12:37 | PN ---
S CIWA - CIWA Score Nausea/Vomitin-No Nausea/No Vomiting Muscle Tremors: 1-None Visible, but [place] Anxiety: 1-Mildly Anxious Agitation: 1-Slight > Activity Paroxysmal Sweats: 2 Orientation: 0-Oriented Tacttile Disturbances: 1-Very Mild Itch/Numbness Auditory Disturbances: 0-None Visual Disturbances: 0-None Headache: 0-None Present CIWA-Ar Total Score: 6 [facility] Progress Note (SOAP) Subjective: interrupted sleep,shakes , sweats , wrist pains Objective: 07/05/19 12:36 Vital Signs Temperature 96.9 F L 07/05/19 09:45 Pulse Rate 92 H 07/05/19 09:45 Respiratory Rate 16 07/05/19 09:45 Blood Pressure 120/73 07/05/19 09:45 O2 Sat by Pulse Oximetry (%) Laboratory Tests 07/02/19 07/02/19 07/02/19 08:40 08:40 08:40 WBC 3.5 L RBC 4.95 Hgb 13.8 Hct 43.7 MCV 88.3 MCH 27.9 MCHC 31.6 L RDW 15.1 Plt Count 218 D MPV 9.0 Sodium 144 Potassium 4.4 Chloride 109 H Carbon Dioxide 29 Anion Gap 6 L BUN 16.2 Creatinine 0.9 Est GFR (CKD-EPI)AfAm 112.62 Est GFR (CKD-EPI)NonAf 97.17 Random Glucose 79 Calcium 8.6 Total Bilirubin 0.3 AST 17 ALT 22 Alkaline Phosphatase 89 Total Protein 7.1 Albumin 3.7 RPR Titer Nonreactive pt aox3 in nad ambulating well and cooperative . 07/05/19 13:27 Assessment: 07/05/19 13:28 withdrawal sx's Plan: cont. detox increase fluids motrin prn
[2019-07-05] MEDS: IBUPROFEN 400 MG TABLET (FP) PO PRN ×2 (15:42→22:07)
[2019-07-05] MEDS: QUEtiapine FUMARATE 300 MG TABLET PO SCH (22:06)
[2019-07-05] MEDS: THIAMINE HCL 100 MG TABLET (FP) PO SCH (22:06)
[2019-07-06] MEDS ORDERED: chlordiazePOXIDE HCL 10 MG CAPSULE PO ONE (05:00)
[2019-07-06] MEDS: amLODIPine BESYLATE 10 MG TABLET (FP) PO SCH (10:24)
[2019-07-06] MEDS: NICOTINE 14 MG/24 HOURS TOPICAL PATCH TD SCH (10:24)
[2019-07-06] MEDS: ARIPiprazole 15 MG TABLET PO SCH (10:24)
[2019-07-06] MEDS: SERTRALINE HCL 50 MG TABLET (FP) PO SCH (10:24)
[2019-07-06] MEDS: PRENATAL VITAMINS W/ FOLIC ACID TABLET (FP) PO SCH (10:24)
[2019-07-06] MEDS: KETOCONOZOLE 2% TOPICAL CREAM 15 GM TUBE TP SCH (10:25)
[2019-07-06] MEDS: ATENOLOL 50 MG TABLET (FP) PO SCH (12:50)
[2019-07-06 14:26] VITALS: BP 144/85; PULSE 88; TEMP 98.1
--- NOTE | 2019-07-06 14:48 | DS ---
[facility] Detox Discharge Summary Admission Date: 07/01/19 Discharge Date: 07/06/19 - History Present History: Alcohol Dependence, Cocaine Dependence, Opioid Dependence Additional Comments: Pt has completed his detox protocol and is medically cleared for discharged to [facility] for continued management. Pt is alert and oriented x3 and in no respiratory distress. Pertinent Past History: h/o asthma, htn, alcohol, heroin, and crack use disorder. - Physical Exam Results Vital Signs: Vital Signs Temperature 98.1 F 07/06/19 14:00 Pulse Rate 88 07/06/19 14:00 Respiratory Rate 18 07/06/19 14:00 Blood Pressure 144/85 07/06/19 14:00 O2 Sat by Pulse Oximetry (%) Vital Signs 07/06/19 14:00 Temperature 98.1 F Pulse Rate 88 Respiratory 18 Rate Blood Pressure 144/85 Laboratory Last Values WBC 3.5 K/mm3 (4.0-10.0) L 07/02/19 08:40 RBC 4.95 M/mm3 (4.00-5.60) 07/02/19 08:40 Hgb 13.8 GM/dL (11.7-16.9) 07/02/19 08:40 Hct 43.7 % (35.4-49) 07/02/19 08:40 MCV 88.3 fl (80-96) 07/02/19 08:40 MCH 27.9 pg (25.7-33.7) 07/02/19 08:40 MCHC 31.6 g/dl (32.0-35.9) L 07/02/19 08:40 RDW 15.1 % (11.9-15.9) 07/02/19 08:40 Plt Count 218 K/MM3 (134-434) D 07/02/19 08:40 MPV 9.0 fl (7.5-11.1) 07/02/19 08:40 Sodium 144 mmol/L (136-145) 07/02/19 08:40 Potassium 4.4 mmol/L (3.5-5.1) 07/02/19 08:40 Chloride 109 mmol/L (98-107) H 07/02/19 08:40 Carbon Dioxide 29 mmol/L (21-32) 07/02/19 08:40 Anion Gap 6 MMOL/L (8-16) L 07/02/19 08:40 BUN 16.2 mg/dL (7-18) 07/02/19 08:40 Creatinine 0.9 mg/dL (0.55-1.3) 07/02/19 08:40 Est GFR (CKD-EPI)AfAm 112.62 07/02/19 08:40 Est GFR (CKD-EPI)NonAf 97.17 07/02/19 08:40 Random Glucose 79 mg/dL (74-106) 07/02/19 08:40 Calcium 8.6 mg/dL (8.5-10.1) 07/02/19 08:40 Total Bilirubin 0.3 mg/dL (0.2-1) 07/02/19 08:40 AST 17 U/L (15-37) 07/02/19 08:40 ALT 22 U/L (13-61) 07/02/19 08:40 Alkaline Phosphatase 89 U/L (45-117) 07/02/19 08:40 Total Protein 7.1 g/dl (6.4-8.2) 07/02/19 08:40 Albumin 3.7 g/dl (3.4-5.0) 07/02/19 08:40 RPR Titer Nonreactive (NONREACTIVE) 07/02/19 08:40 Labs noted. Pertinent Admission Physical Exam Findings: withdrawal symptoms. - Treatment Hospital Course: Detox Protocol Followed, Detoxed Safely, Responded well, Discharged Condition Good, Rehab Referral Accepted Patient has Accepted a Rehab Referral to: [facility]. - Medication Discharge Medications: Ambulatory Orders Multivitamins [Multivit ([facility] Formulary)] 1 tab PO DAILY 02/22/18 Naltrexone HCl 50 mg PO DAILY 02/22/18 Amlodipine Besylate [Norvasc -] 10 mg PO DAILY #30 tablet 06/24/18 Atenolol [Tenormin -] 100 mg PO DAILY #30 tablet 06/24/18 Duloxetine HCl [Cymbalta -] 60 mg PO DAILY #30 capsule. 07/23/18 Quetiapine Fumarate [Seroquel -] 300 mg PO HS #30 tablet 07/23/18 traZODone HCL [Desyrel -] 200 mg PO HS #30 tablet 07/23/18 Aripiprazole 15 mg PO DAILY 07/01/19 Diclofenac Sodium 100 mg PO DAILY 07/01/19 Sertraline HCl 50 mg PO DAILY 07/01/19 - Diagnosis (1) Cocaine dependence Current Visit: Yes Status: Acute (2) Opioid dependence Current Visit: Yes Status: Acute (3) Alcohol dependence with uncomplicated withdrawal Current Visit: No Status: Acute (4) COPD (chronic obstructive pulmonary disease) Current Visit: No Status: Chronic Qualifiers: COPD type: unspecified COPD Qualified Code(s): J44.9 - Chronic obstructive pulmonary disease, unspecified (5) Hypertension Current Visit: No Status: Chronic Qualifiers: Hypertension type: essential hypertension Qualified Code(s): I10 - Essential (primary) hypertension (6) Lower back pain Current Visit: No Status: Chronic Qualifiers: Chronicity: chronic Back pain laterality: bilateral Sciatica laterality: sciatica laterality unspecified - AMA Did Patient Leave Against Medical Advice: No [facility] CIWA - CIWA Score Nausea/Vomitin-No Nausea/No Vomiting Muscle Tremors: None Anxiety: 2 Agitation: 0-Normal Activity Paroxysmal Sweats: 1-Minimal Palms Moist Orientation: 0-Oriented Tacttile Disturbances: 0-None Auditory Disturbances: 0-None Visual Disturbances: 0-None Headache: 0-None Present CIWA-Ar Total Score: 3
== END 2019-07-06 15:33 | disposition other institution (70) | DRG 773 ==
LOC: YASAS 16:13 → Y6N 22:38
PROVIDERS: ADMIT Allergy & Immunology; ATTEND Allergy & Immunology
PROC: HZ2ZZZZ Detoxification Services for Substance Abuse Treatment (ICD-10-PCS; principal; 2019-07-01)
DX: F11.23 Opioid dependence with withdrawal (principal); F10.230 Alcohol dependence with withdrawal, uncomplicated; F14.20 Cocaine dependence, uncomplicated; F17.213 Nicotine dependence, cigarettes, with withdrawal; F25.9 Schizoaffective disorder, unspecified; F31.9 Bipolar disorder, unspecified; F19.24 Other psychoactive substance dependence with psychoactive substance-induced mood disorder; F19.282 Other psychoactive substance dependence with psychoactive substance-induced sleep disorder; I10 Essential (primary) hypertension; J44.9 Chronic obstructive pulmonary disease, unspecified; M19.90 Unspecified osteoarthritis, unspecified site; B19.20 Unspecified viral hepatitis C without hepatic coma; M54.5 Low back pain; G89.29 Other chronic pain; Z91.041 Radiographic dye allergy status; Z91.048 Other nonmedicinal substance allergy status; Z86.69 Personal history of other diseases of the nervous system and sense organs; Z90.5 Acquired absence of kidney; Z91.5 Personal history of self-harm
CPT/HCPCS: 36415; 80053; 85027; 86593; 93005; 93010

== ENCOUNTER 2019-07-06 15:37 | Inpatient (IN) | payer OTHER ==
[2019-07-06] MEDS ORDERED: NICOTINE POLACRILEX 2 MG GUM BUC PRN (16:32)
[2019-07-06] MEDS ORDERED: ACETAMINOPHEN 325 MG TABLET (FP) PO PRN (16:32)
[2019-07-06] MEDS ORDERED: MENTHOL/PHENOL 1 EACH UD MM PRN (16:32)
[2019-07-06] MEDS ORDERED: MAGNESIUM CITRATE 300 ML BOTTLE PO PRN (16:32)
[2019-07-06] MEDS ORDERED: guaiFENesin 200 MG/10 ML 10 ML UNIT-DOSE CUPS PO PRN (16:32)
[2019-07-06] MEDS ORDERED: LOPERAMIDE HCL 2 MG CAPSULE PO PRN (16:32)
[2019-07-06] MEDS ORDERED: P-EPHED 60MG/TRIPROLIDI 2.5MG TABLET PO PRN (16:32)
[2019-07-06] MEDS ORDERED: MAGNESIUM HYDROX 2400MG/30ML ORAL SUSPENSION 30 ML CUP PO PRN (16:32)
--- NOTE | 2019-07-06 16:32 | HP ---
ELISABETH CRUZ Rehab Assess/Revision - Admission History Admitted to Rehab from: [facility] Date of Admission to Rehab: 07/06/2019 - Vital signs Vital Signs: Vital Signs Period Temp Pulse Resp BP Sys/Tao Pulse Ox Last 24 Hr 98.4 F 89 16 141/83 Vital Signs - 24 hr 07/06/19 15:49 Temperature 98.4 F Pulse Rate 89 Respiratory 16 Rate Blood Pressure 141/83 - Findings Detox History & Physical reviewed: Yes Concur with findings: Yes Comments/Additional Findings: Pt is medically cleared and is [facility]. Inpatient Rehab Admission - Rehab Decision to Admit Inpatient rehab admission?: Yes - Initial Determination Are CD services needed?: Yes Free of communicable disease: Yes Not in need of hospitalization: Yes - Rehab Admission Criteria Previous failed treatment: Yes Poor recovery environment: Yes Comorbidities: Yes Lacks judgement: No Patient is meeting Inpatient Rehab admission criteria:: Yes
[2019-07-06] MEDS: THIAMINE HCL 100 MG TABLET (FP) PO SCH (21:16)
[2019-07-06] MEDS: IBUPROFEN 400 MG TABLET (FP) PO PRN (21:17)
[2019-07-06] MEDS: QUEtiapine FUMARATE 300 MG TABLET PO SCH (21:42)
[2019-07-07] MEDS: NICOTINE 14 MG/24 HOURS TOPICAL PATCH TD SCH (10:57)
[2019-07-07] MEDS: KETOCONAZOLE 2% CREAM - 60GM TUBE TP SCH (10:58)
[2019-07-07] MEDS: amLODIPine BESYLATE 10 MG TABLET (FP) PO SCH (10:59)
[2019-07-07] MEDS: PRENATAL VITAMINS W/ FOLIC ACID TABLET (FP) PO SCH (10:59)
[2019-07-07] MEDS: ATENOLOL 50 MG TABLET (FP) PO SCH (10:59)
[2019-07-07] MEDS: IBUPROFEN 400 MG TABLET (FP) PO PRN ×2 (14:42→21:55)
[2019-07-07] MEDS: THIAMINE HCL 100 MG TABLET (FP) PO SCH (21:53)
[2019-07-07] MEDS: QUEtiapine FUMARATE 300 MG TABLET PO SCH (21:54)
[2019-07-07] MEDS: MELATONIN 5 MG TABLETS PO PRN (21:55)
[2019-07-08] MEDS: NICOTINE 14 MG/24 HOURS TOPICAL PATCH TD SCH (10:28)
[2019-07-08] MEDS: ATENOLOL 50 MG TABLET (FP) PO SCH (10:30)
[2019-07-08] MEDS: amLODIPine BESYLATE 10 MG TABLET (FP) PO SCH (10:30)
[2019-07-08] MEDS: PRENATAL VITAMINS W/ FOLIC ACID TABLET (FP) PO SCH (10:31)
[2019-07-08] MEDS: KETOCONAZOLE 2% CREAM - 60GM TUBE TP SCH (10:31)
[2019-07-08] MEDS ORDERED: ARIPiprazole 15 MG TABLET PO ONE (14:47)
--- NOTE | 2019-07-08 15:05 | PN ---
[facility] Progress Note Note: Patient seen regarding naltrexone treatment as he reported to provider he takes oral naltrexone for alcohol dependence. Patient admitted to detox on 07/01-07/06 for alcohol withdrawal symptoms. Patient relapsed on alcohol after he stopped taking psychiatric medications. Patient admitted to rehab 07/06/19. States he is would like to resume naltrexone and has provider at [facility]-Dr. Sekou Ruth. Pharmacy called-[facility] at [phone] order verified and last filled 06/26/19. Will resume medication as ordered. Vital Signs Temperature 97.4 F L 07/08/19 07:01 Pulse Rate 77 07/08/19 07:01 Respiratory Rate 18 07/08/19 07:01 Blood Pressure 109/83 07/08/19 07:01 O2 Sat by Pulse Oximetry (%)
[2019-07-08] MEDS ORDERED: SERTRALINE HCL 50 MG TABLET (FP) PO ONE (15:20)
[2019-07-08] MEDS: THIAMINE HCL 100 MG TABLET (FP) PO SCH (21:33)
[2019-07-08] MEDS: QUEtiapine FUMARATE 300 MG TABLET PO SCH (21:34)
[2019-07-08] MEDS: IBUPROFEN 400 MG TABLET (FP) PO PRN (21:34)
[2019-07-08] MEDS: MELATONIN 5 MG TABLETS PO PRN (21:34)
[2019-07-08] MEDS: MAG HYDROX/AL HYDROX/SIMETH 30 ML UNIT-DOSE CUP PO PRN (21:35)
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
[2019-07-09] MEDS: ARIPiprazole 15 MG TABLET PO SCH (09:42)
[2019-07-09] MEDS: MAG HYDROX/AL HYDROX/SIMETH 30 ML UNIT-DOSE CUP PO PRN (09:42)
[2019-07-09] MEDS: NICOTINE 14 MG/24 HOURS TOPICAL PATCH TD SCH (09:43)
[2019-07-09] MEDS: KETOCONAZOLE 2% CREAM - 60GM TUBE TP SCH (09:43)
[2019-07-09] MEDS: ATENOLOL 50 MG TABLET (FP) PO SCH (09:44)
[2019-07-09] MEDS: SERTRALINE HCL 50 MG TABLET (FP) PO SCH (09:44)
[2019-07-09] MEDS: NALTREXONE HCL 50 MG TABLET PO SCH (09:44)
[2019-07-09] MEDS: amLODIPine BESYLATE 10 MG TABLET (FP) PO SCH (09:45)
[2019-07-09] MEDS: PRENATAL VITAMINS W/ FOLIC ACID TABLET (FP) PO SCH (09:46)
--- NOTE | 2019-07-09 11:29 | PN ---
S Progress Note (SOAP) Subjective: patient reports that he had unprotected anal sex with a transgender female. PMHx of genital herpes. Reports that he has had unprotected sex with females in the past when under the influence of drugs or when he is in a manic state. Last HIV test was in 2018, negative. Objective: Physical: Refused genital exam General: no apparent distress Skin: clear-including palms, no rashes HEENTM: mouth-clear n 07/09/19 11:28 Assessment: unprotected anal sex; at risk for STI 07/09/19 11:29 Plan: Ordered HIV test, GC/chlamydia, RPR, and urine culture. Discussed PrEP with patient. He attends [facility]. Encouraged patient to discuss PrEP with his provider upon discharge if the HIV test is negative.
[2019-07-09] MEDS: hydrOXYzine PAMOATE 25 MG CAPSULE (FP) PO PRN (14:28)
[2019-07-09] MEDS: MELATONIN 5 MG TABLETS PO PRN (21:19)
[2019-07-09] MEDS: THIAMINE HCL 100 MG TABLET (FP) PO SCH (21:19)
[2019-07-09] MEDS: QUEtiapine FUMARATE 300 MG TABLET PO SCH (21:19)
[2019-07-09] MEDS: IBUPROFEN 400 MG TABLET (FP) PO PRN (21:20)
[2019-07-10] MEDS ORDERED: PT OWN MED DRAWER 7, Y5N ONE (09:02)
[2019-07-10] MEDS: SERTRALINE HCL 50 MG TABLET (FP) PO SCH (10:04)
[2019-07-10] MEDS: PRENATAL VITAMINS W/ FOLIC ACID TABLET (FP) PO SCH (10:04)
[2019-07-10] MEDS: amLODIPine BESYLATE 10 MG TABLET (FP) PO SCH (10:04)
[2019-07-10] MEDS: ATENOLOL 50 MG TABLET (FP) PO SCH (10:05)
[2019-07-10] MEDS: NALTREXONE HCL 50 MG TABLET PO SCH (10:05)
[2019-07-10] MEDS: NICOTINE 14 MG/24 HOURS TOPICAL PATCH TD SCH (10:05)
[2019-07-10] MEDS: KETOCONAZOLE 2% CREAM - 60GM TUBE TP SCH (10:05)
[2019-07-10] MEDS: ARIPiprazole 15 MG TABLET PO SCH (10:06)
[2019-07-10] MEDS: hydrOXYzine PAMOATE 25 MG CAPSULE (FP) PO PRN (14:38)
[2019-07-10] MEDS: THIAMINE HCL 100 MG TABLET (FP) PO SCH (21:35)
[2019-07-10] MEDS: MELATONIN 5 MG TABLETS PO PRN (21:35)
[2019-07-10] MEDS: QUEtiapine FUMARATE 300 MG TABLET PO SCH (21:36)
[2019-07-10] MEDS: IBUPROFEN 400 MG TABLET (FP) PO PRN (21:36)
[2019-07-11] MEDS ORDERED: PT OWN MED DRAWER 7, Y5N ONE (09:23)
[2019-07-11] MEDS: ARIPiprazole 15 MG TABLET PO SCH (10:35)
[2019-07-11] MEDS: amLODIPine BESYLATE 10 MG TABLET (FP) PO SCH (10:35)
[2019-07-11] MEDS: SERTRALINE HCL 50 MG TABLET (FP) PO SCH (10:35)
[2019-07-11] MEDS: KETOCONAZOLE 2% CREAM - 60GM TUBE TP SCH (10:36)
[2019-07-11] MEDS: NICOTINE 14 MG/24 HOURS TOPICAL PATCH TD SCH (10:36)
[2019-07-11] MEDS: NALTREXONE HCL 50 MG TABLET PO SCH (10:36)
[2019-07-11] MEDS: ATENOLOL 50 MG TABLET (FP) PO SCH (10:37)
[2019-07-11] MEDS: PRENATAL VITAMINS W/ FOLIC ACID TABLET (FP) PO SCH (10:37)
[2019-07-11] MEDS: IBUPROFEN 400 MG TABLET (FP) PO PRN ×2 (10:38→21:08)
[2019-07-11] MEDS: MELATONIN 5 MG TABLETS PO PRN (21:08)
[2019-07-11] MEDS: THIAMINE HCL 100 MG TABLET (FP) PO SCH (21:09)
[2019-07-11] MEDS: QUEtiapine FUMARATE 300 MG TABLET PO SCH (21:09)
[2019-07-12] MEDS ORDERED: PT OWN MED DRAWER 7, Y5N ONE (08:54)
[2019-07-12] MEDS: ATENOLOL 50 MG TABLET (FP) PO SCH (09:53)
[2019-07-12] MEDS: ARIPiprazole 15 MG TABLET PO SCH (09:53)
[2019-07-12] MEDS: amLODIPine BESYLATE 10 MG TABLET (FP) PO SCH (09:53)
[2019-07-12] MEDS: NALTREXONE HCL 50 MG TABLET PO SCH (09:53)
[2019-07-12] MEDS: SERTRALINE HCL 50 MG TABLET (FP) PO SCH (09:53)
[2019-07-12] MEDS: PRENATAL VITAMINS W/ FOLIC ACID TABLET (FP) PO SCH (09:54)
[2019-07-12] MEDS: NICOTINE 14 MG/24 HOURS TOPICAL PATCH TD SCH (09:54)
[2019-07-12] MEDS: IBUPROFEN 400 MG TABLET (FP) PO PRN ×2 (09:55→21:37)
--- NOTE | 2019-07-12 10:17 | PN ---
[facility] Progress Note Note: Reviewed lab results with pt: HIV neg, U Cx- neg and RPR neg
[2019-07-12] MEDS: KETOCONAZOLE 2% CREAM - 60GM TUBE TP SCH (10:33)
[2019-07-12] MEDS: MELATONIN 5 MG TABLETS PO PRN (21:35)
[2019-07-12] MEDS: QUEtiapine FUMARATE 300 MG TABLET PO SCH (21:36)
[2019-07-12] MEDS: THIAMINE HCL 100 MG TABLET (FP) PO SCH (21:36)
[2019-07-13] MEDS ORDERED: PT OWN MED DRAWER 7, Y5N ONE (09:21)
[2019-07-13] MEDS: NICOTINE 14 MG/24 HOURS TOPICAL PATCH TD SCH (10:21)
[2019-07-13] MEDS: KETOCONAZOLE 2% CREAM - 60GM TUBE TP SCH (10:21)
[2019-07-13] MEDS: amLODIPine BESYLATE 10 MG TABLET (FP) PO SCH (10:22)
[2019-07-13] MEDS: NALTREXONE HCL 50 MG TABLET PO SCH (10:22)
[2019-07-13] MEDS: ATENOLOL 50 MG TABLET (FP) PO SCH (10:22)
[2019-07-13] MEDS: PRENATAL VITAMINS W/ FOLIC ACID TABLET (FP) PO SCH (10:22)
[2019-07-13] MEDS: SERTRALINE HCL 50 MG TABLET (FP) PO SCH (10:22)
[2019-07-13] MEDS: ARIPiprazole 15 MG TABLET PO SCH (10:22)
[2019-07-13] MEDS: QUEtiapine FUMARATE 300 MG TABLET PO SCH (21:05)
[2019-07-13] MEDS: hydrOXYzine PAMOATE 25 MG CAPSULE (FP) PO PRN (21:05)
[2019-07-13] MEDS: THIAMINE HCL 100 MG TABLET (FP) PO SCH (21:05)
[2019-07-13] MEDS: MELATONIN 5 MG TABLETS PO PRN (21:05)
[2019-07-14] MEDS ORDERED: PT OWN MED DRAWER 7, Y5N ONE (09:14)
[2019-07-14] MEDS: NALTREXONE HCL 50 MG TABLET PO SCH (09:48)
[2019-07-14] MEDS: ATENOLOL 50 MG TABLET (FP) PO SCH (09:49)
[2019-07-14] MEDS: NICOTINE 14 MG/24 HOURS TOPICAL PATCH TD SCH (09:49)
[2019-07-14] MEDS: PRENATAL VITAMINS W/ FOLIC ACID TABLET (FP) PO SCH (09:49)
[2019-07-14] MEDS: amLODIPine BESYLATE 10 MG TABLET (FP) PO SCH (09:49)
[2019-07-14] MEDS: ARIPiprazole 15 MG TABLET PO SCH (09:49)
[2019-07-14] MEDS: SERTRALINE HCL 50 MG TABLET (FP) PO SCH (09:49)
[2019-07-14] MEDS: KETOCONAZOLE 2% CREAM - 60GM TUBE TP SCH (09:49)
[2019-07-14] MEDS: THIAMINE HCL 100 MG TABLET (FP) PO SCH (21:34)
[2019-07-14] MEDS: MELATONIN 5 MG TABLETS PO PRN (21:34)
[2019-07-14] MEDS: QUEtiapine FUMARATE 300 MG TABLET PO SCH (21:35)
[2019-07-15] MEDS: ARIPiprazole 15 MG TABLET PO SCH (10:08)
[2019-07-15] MEDS: ATENOLOL 50 MG TABLET (FP) PO SCH (10:08)
[2019-07-15] MEDS: KETOCONAZOLE 2% CREAM - 60GM TUBE TP SCH (10:08)
[2019-07-15] MEDS: amLODIPine BESYLATE 10 MG TABLET (FP) PO SCH (10:08)
[2019-07-15] MEDS: NICOTINE 14 MG/24 HOURS TOPICAL PATCH TD SCH (10:08)
[2019-07-15] MEDS: PRENATAL VITAMINS W/ FOLIC ACID TABLET (FP) PO SCH (10:09)
[2019-07-15] MEDS: SERTRALINE HCL 50 MG TABLET (FP) PO SCH (11:32)
[2019-07-15] MEDS: NALTREXONE HCL 50 MG TABLET PO SCH (13:30)
[2019-07-15] MEDS: THIAMINE HCL 100 MG TABLET (FP) PO SCH (21:20)
[2019-07-15] MEDS: MELATONIN 5 MG TABLETS PO PRN (21:21)
[2019-07-15] MEDS: QUEtiapine FUMARATE 300 MG TABLET PO SCH (21:21)
[2019-07-16] MEDS: SERTRALINE HCL 50 MG TABLET (FP) PO SCH (10:01)
[2019-07-16] MEDS: amLODIPine BESYLATE 10 MG TABLET (FP) PO SCH (10:01)
[2019-07-16] MEDS: NALTREXONE HCL 50 MG TABLET PO SCH (10:01)
[2019-07-16] MEDS: PRENATAL VITAMINS W/ FOLIC ACID TABLET (FP) PO SCH (10:01)
[2019-07-16] MEDS: ARIPiprazole 15 MG TABLET PO SCH (10:02)
[2019-07-16] MEDS: NICOTINE 14 MG/24 HOURS TOPICAL PATCH TD SCH (10:02)
[2019-07-16] MEDS: ATENOLOL 50 MG TABLET (FP) PO SCH (10:02)
[2019-07-16] MEDS: KETOCONAZOLE 2% CREAM - 60GM TUBE TP SCH (10:03)
[2019-07-16] MEDS: hydrOXYzine PAMOATE 25 MG CAPSULE (FP) PO PRN (12:40)
[2019-07-16] MEDS: MELATONIN 5 MG TABLETS PO PRN (21:30)
[2019-07-16] MEDS: THIAMINE HCL 100 MG TABLET (FP) PO SCH (21:30)
[2019-07-16] MEDS: QUEtiapine FUMARATE 300 MG TABLET PO SCH (21:30)
[2019-07-17] MEDS ORDERED: PT OWN MED DRAWER 7, Y5N ONE (09:01)
[2019-07-17] MEDS: SERTRALINE HCL 50 MG TABLET (FP) PO SCH (09:51)
[2019-07-17] MEDS: amLODIPine BESYLATE 10 MG TABLET (FP) PO SCH (09:51)
[2019-07-17] MEDS: PRENATAL VITAMINS W/ FOLIC ACID TABLET (FP) PO SCH (09:51)
[2019-07-17] MEDS: ATENOLOL 50 MG TABLET (FP) PO SCH (09:51)
[2019-07-17] MEDS: NALTREXONE HCL 50 MG TABLET PO SCH (09:52)
[2019-07-17] MEDS: KETOCONAZOLE 2% CREAM - 60GM TUBE TP SCH (09:52)
[2019-07-17] MEDS: ARIPiprazole 15 MG TABLET PO SCH (09:52)
[2019-07-17] MEDS: NICOTINE 14 MG/24 HOURS TOPICAL PATCH TD SCH (09:52)
[2019-07-17] MEDS: MELATONIN 5 MG TABLETS PO PRN (21:03)
[2019-07-17] MEDS: QUEtiapine FUMARATE 300 MG TABLET PO SCH (21:03)
[2019-07-17] MEDS: THIAMINE HCL 100 MG TABLET (FP) PO SCH (21:03)
[2019-07-18] MEDS: SERTRALINE HCL 50 MG TABLET (FP) PO SCH (10:08)
[2019-07-18] MEDS: ARIPiprazole 15 MG TABLET PO SCH (10:08)
[2019-07-18] MEDS: NICOTINE 14 MG/24 HOURS TOPICAL PATCH TD SCH (10:08)
[2019-07-18] MEDS: amLODIPine BESYLATE 10 MG TABLET (FP) PO SCH (10:08)
[2019-07-18] MEDS: ATENOLOL 50 MG TABLET (FP) PO SCH (10:08)
[2019-07-18] MEDS: PRENATAL VITAMINS W/ FOLIC ACID TABLET (FP) PO SCH (10:09)
[2019-07-18] MEDS ORDERED: PT OWN MED DRAWER 7, Y5N ONE (10:37)
[2019-07-18] MEDS: NALTREXONE HCL 50 MG TABLET PO SCH (11:50)
[2019-07-18] MEDS: KETOCONAZOLE 2% CREAM - 60GM TUBE TP SCH (11:50)
--- NOTE | 2019-07-18 15:10 | PN ---
[facility] Progress Note Note: Patient is scheduled for discharge tomorrow. Scripts for 30 days supply of medications(Zoloft 100 mg/day, Abilify 15 mg/day, Seroquel 300 mg/hs) will be electronically transmitted to [facility] at [address] [place] [id number]
[2019-07-18] MEDS: THIAMINE HCL 100 MG TABLET (FP) PO SCH (21:37)
[2019-07-18] MEDS: MELATONIN 5 MG TABLETS PO PRN (21:37)
[2019-07-18] MEDS: QUEtiapine FUMARATE 300 MG TABLET PO SCH (21:37)
[2019-07-18] MEDS: IBUPROFEN 400 MG TABLET (FP) PO PRN (21:38)
[2019-07-19] MEDS: PRENATAL VITAMINS W/ FOLIC ACID TABLET (FP) PO SCH (09:57)
[2019-07-19] MEDS: KETOCONAZOLE 2% CREAM - 60GM TUBE TP SCH (09:57)
[2019-07-19] MEDS: ARIPiprazole 15 MG TABLET PO SCH (09:57)
[2019-07-19] MEDS: SERTRALINE HCL 50 MG TABLET (FP) PO SCH (09:58)
[2019-07-19] MEDS: ATENOLOL 50 MG TABLET (FP) PO SCH (09:58)
[2019-07-19] MEDS: NICOTINE 14 MG/24 HOURS TOPICAL PATCH TD SCH (09:58)
[2019-07-19] MEDS: amLODIPine BESYLATE 10 MG TABLET (FP) PO SCH (09:58)
[2019-07-19] MEDS: NALTREXONE HCL 50 MG TABLET PO SCH (09:58)
[2019-07-19] MEDS ORDERED: PT OWN MED DRAWER 7, Y5N ONE (12:07)
[2019-07-19] MEDS: THIAMINE HCL 100 MG TABLET (FP) PO SCH (21:05)
[2019-07-19] MEDS: QUEtiapine FUMARATE 300 MG TABLET PO SCH (21:05)
[2019-07-19] MEDS: MELATONIN 5 MG TABLETS PO PRN (21:05)
[2019-07-20] MEDS ORDERED: PT OWN MED DRAWER 7, Y5N ONE (09:31)
[2019-07-20] MEDS: ARIPiprazole 15 MG TABLET PO SCH (10:22)
[2019-07-20] MEDS: NALTREXONE HCL 50 MG TABLET PO SCH (10:22)
[2019-07-20] MEDS: SERTRALINE HCL 50 MG TABLET (FP) PO SCH (10:22)
[2019-07-20] MEDS: PRENATAL VITAMINS W/ FOLIC ACID TABLET (FP) PO SCH (10:22)
[2019-07-20] MEDS: amLODIPine BESYLATE 10 MG TABLET (FP) PO SCH (10:22)
[2019-07-20] MEDS: ATENOLOL 50 MG TABLET (FP) PO SCH (10:23)
[2019-07-20] MEDS: KETOCONAZOLE 2% CREAM - 60GM TUBE TP SCH (10:23)
[2019-07-20] MEDS: NICOTINE 14 MG/24 HOURS TOPICAL PATCH TD SCH (10:23)
[2019-07-20] MEDS: THIAMINE HCL 100 MG TABLET (FP) PO SCH (21:55)
[2019-07-20] MEDS: MELATONIN 5 MG TABLETS PO PRN (21:56)
[2019-07-20] MEDS: QUEtiapine FUMARATE 300 MG TABLET PO SCH (21:56)
[2019-07-21] MEDS: ATENOLOL 50 MG TABLET (FP) PO SCH (09:49)
[2019-07-21] MEDS: ARIPiprazole 15 MG TABLET PO SCH (09:49)
[2019-07-21] MEDS: PRENATAL VITAMINS W/ FOLIC ACID TABLET (FP) PO SCH (09:49)
[2019-07-21] MEDS: SERTRALINE HCL 50 MG TABLET (FP) PO SCH (09:49)
[2019-07-21] MEDS: NALTREXONE HCL 50 MG TABLET PO SCH (09:50)
[2019-07-21] MEDS: NICOTINE 14 MG/24 HOURS TOPICAL PATCH TD SCH (09:50)
[2019-07-21] MEDS: amLODIPine BESYLATE 10 MG TABLET (FP) PO SCH (09:50)
[2019-07-21] MEDS: KETOCONAZOLE 2% CREAM - 60GM TUBE TP SCH (09:52)
[2019-07-21] MEDS ORDERED: PT OWN MED DRAWER 7, Y5N ONE (09:52)
[2019-07-21] MEDS: QUEtiapine FUMARATE 300 MG TABLET PO SCH (21:07)
[2019-07-21] MEDS: MELATONIN 5 MG TABLETS PO PRN (21:07)
[2019-07-21] MEDS: THIAMINE HCL 100 MG TABLET (FP) PO SCH (21:07)
[2019-07-21] MEDS: IBUPROFEN 400 MG TABLET (FP) PO PRN (21:08)
[2019-07-22] MEDS: ARIPiprazole 15 MG TABLET PO SCH (10:11)
[2019-07-22] MEDS: NICOTINE 14 MG/24 HOURS TOPICAL PATCH TD SCH (10:11)
[2019-07-22] MEDS: SERTRALINE HCL 50 MG TABLET (FP) PO SCH (10:12)
[2019-07-22] MEDS: amLODIPine BESYLATE 10 MG TABLET (FP) PO SCH (10:12)
[2019-07-22] MEDS: NALTREXONE HCL 50 MG TABLET PO SCH (10:12)
[2019-07-22] MEDS: ATENOLOL 50 MG TABLET (FP) PO SCH (10:12)
[2019-07-22] MEDS: PRENATAL VITAMINS W/ FOLIC ACID TABLET (FP) PO SCH (10:12)
[2019-07-22] MEDS: KETOCONAZOLE 2% CREAM - 60GM TUBE TP SCH (10:58)
[2019-07-22] MEDS: MELATONIN 5 MG TABLETS PO PRN (21:37)
[2019-07-22] MEDS: QUEtiapine FUMARATE 300 MG TABLET PO SCH (21:37)
[2019-07-22] MEDS: THIAMINE HCL 100 MG TABLET (FP) PO SCH (21:38)
[2019-07-22] MEDS: IBUPROFEN 400 MG TABLET (FP) PO PRN (21:38)
[2019-07-23] MEDS ORDERED: PT OWN MED DRAWER 7, Y5N ONE ×2 (08:34→09:37)
[2019-07-23] MEDS: NALTREXONE HCL 50 MG TABLET PO SCH (09:34)
[2019-07-23] MEDS: PRENATAL VITAMINS W/ FOLIC ACID TABLET (FP) PO SCH (09:34)
[2019-07-23] MEDS: SERTRALINE HCL 50 MG TABLET (FP) PO SCH (09:34)
[2019-07-23] MEDS: ATENOLOL 50 MG TABLET (FP) PO SCH (09:35)
[2019-07-23] MEDS: ARIPiprazole 15 MG TABLET PO SCH (09:35)
[2019-07-23] MEDS: amLODIPine BESYLATE 10 MG TABLET (FP) PO SCH (09:35)
[2019-07-23] MEDS: NICOTINE 14 MG/24 HOURS TOPICAL PATCH TD SCH (09:37)
[2019-07-23] MEDS: KETOCONAZOLE 2% CREAM - 60GM TUBE TP SCH (09:37)
[2019-07-23] MEDS: THIAMINE HCL 100 MG TABLET (FP) PO SCH (21:14)
[2019-07-23] MEDS: MELATONIN 5 MG TABLETS PO PRN (21:14)
[2019-07-23] MEDS: QUEtiapine FUMARATE 300 MG TABLET PO SCH (21:14)
[2019-07-24] MEDS: NALTREXONE HCL 50 MG TABLET PO SCH (10:05)
[2019-07-24] MEDS: ARIPiprazole 15 MG TABLET PO SCH (10:05)
[2019-07-24] MEDS: ATENOLOL 50 MG TABLET (FP) PO SCH (10:05)
[2019-07-24] MEDS: amLODIPine BESYLATE 10 MG TABLET (FP) PO SCH (10:05)
[2019-07-24] MEDS: NICOTINE 14 MG/24 HOURS TOPICAL PATCH TD SCH (10:05)
[2019-07-24] MEDS: SERTRALINE HCL 50 MG TABLET (FP) PO SCH (10:05)
[2019-07-24] MEDS: PRENATAL VITAMINS W/ FOLIC ACID TABLET (FP) PO SCH (10:06)
[2019-07-24] MEDS: KETOCONAZOLE 2% CREAM - 60GM TUBE TP SCH (10:06)
[2019-07-24] MEDS ORDERED: WITCH HAZEL 50% (TUCKS) 40 PAD/JAR PAD TP PRN (13:39)
--- NOTE | 2019-07-24 14:05 | PN ---
[facility] Progress Note (SOAP) Subjective: patient c/o hemorrhoids bleeding. Objective: Exam: refused 07/24/19 14:03 Assessment: hemorrhoids 07/24/19 14:03 Plan: Ordered colace; tucks and hemorrhoid cream
[2019-07-24] MEDS: QUEtiapine FUMARATE 300 MG TABLET PO SCH (21:49)
[2019-07-24] MEDS: MELATONIN 5 MG TABLETS PO PRN (21:49)
[2019-07-24] MEDS: DOCUSATE SODIUM 100 MG CAPSULE (FP) PO SCH (21:49)
[2019-07-24] MEDS: THIAMINE HCL 100 MG TABLET (FP) PO SCH (21:49)
[2019-07-25] MEDS: BENZOCAINE 28 GM HEMORRHOIDAL OINTMENT PR PRN (10:29)
[2019-07-25] MEDS: SERTRALINE HCL 50 MG TABLET (FP) PO SCH (10:29)
[2019-07-25] MEDS: ARIPiprazole 15 MG TABLET PO SCH (10:29)
[2019-07-25] MEDS: ATENOLOL 50 MG TABLET (FP) PO SCH (10:29)
[2019-07-25] MEDS: PRENATAL VITAMINS W/ FOLIC ACID TABLET (FP) PO SCH (10:29)
[2019-07-25] MEDS: amLODIPine BESYLATE 10 MG TABLET (FP) PO SCH (10:29)
[2019-07-25] MEDS: DOCUSATE SODIUM 100 MG CAPSULE (FP) PO SCH (10:29)
[2019-07-25] MEDS: NALTREXONE HCL 50 MG TABLET PO SCH (10:29)
[2019-07-25] MEDS: IBUPROFEN 400 MG TABLET (FP) PO PRN (10:31)
[2019-07-25] MEDS: KETOCONAZOLE 2% CREAM - 60GM TUBE TP SCH (10:31)
[2019-07-25] MEDS: NICOTINE 14 MG/24 HOURS TOPICAL PATCH TD SCH (10:31)
[2019-07-25] MEDS: MELATONIN 5 MG TABLETS PO PRN (21:28)
[2019-07-25] MEDS: THIAMINE HCL 100 MG TABLET (FP) PO SCH (21:28)
[2019-07-25] MEDS: QUEtiapine FUMARATE 300 MG TABLET PO SCH (21:29)
[2019-07-26] MEDS: amLODIPine BESYLATE 10 MG TABLET (FP) PO SCH (09:42)
[2019-07-26] MEDS: SERTRALINE HCL 50 MG TABLET (FP) PO SCH (09:42)
[2019-07-26] MEDS: BENZOCAINE 28 GM HEMORRHOIDAL OINTMENT PR PRN (09:42)
[2019-07-26] MEDS: DOCUSATE SODIUM 100 MG CAPSULE (FP) PO SCH (09:42)
[2019-07-26] MEDS: NALTREXONE HCL 50 MG TABLET PO SCH (09:42)
[2019-07-26] MEDS: PRENATAL VITAMINS W/ FOLIC ACID TABLET (FP) PO SCH (09:43)
[2019-07-26] MEDS: ARIPiprazole 15 MG TABLET PO SCH (09:43)
[2019-07-26] MEDS: NICOTINE 14 MG/24 HOURS TOPICAL PATCH TD SCH (09:43)
[2019-07-26] MEDS: ATENOLOL 50 MG TABLET (FP) PO SCH (09:43)
[2019-07-26] MEDS: KETOCONAZOLE 2% CREAM - 60GM TUBE TP SCH (09:43)
[2019-07-26] MEDS: MELATONIN 5 MG TABLETS PO PRN (21:45)
[2019-07-26] MEDS: QUEtiapine FUMARATE 300 MG TABLET PO SCH (21:45)
[2019-07-26] MEDS: THIAMINE HCL 100 MG TABLET (FP) PO SCH (21:45)
[2019-07-27] MEDS: ARIPiprazole 15 MG TABLET PO SCH (09:49)
[2019-07-27] MEDS: NICOTINE 14 MG/24 HOURS TOPICAL PATCH TD SCH (09:49)
[2019-07-27] MEDS: KETOCONAZOLE 2% CREAM - 60GM TUBE TP SCH (09:49)
[2019-07-27] MEDS: amLODIPine BESYLATE 10 MG TABLET (FP) PO SCH (09:49)
[2019-07-27] MEDS: DOCUSATE SODIUM 100 MG CAPSULE (FP) PO SCH (09:49)
[2019-07-27] MEDS: SERTRALINE HCL 50 MG TABLET (FP) PO SCH (09:50)
[2019-07-27] MEDS: ATENOLOL 50 MG TABLET (FP) PO SCH (09:50)
[2019-07-27] MEDS: PRENATAL VITAMINS W/ FOLIC ACID TABLET (FP) PO SCH (09:50)
[2019-07-27] MEDS: NALTREXONE HCL 50 MG TABLET PO SCH (09:50)
[2019-07-27] MEDS: BENZOCAINE 28 GM HEMORRHOIDAL OINTMENT PR PRN (09:51)
[2019-07-27] MEDS: THIAMINE HCL 100 MG TABLET (FP) PO SCH (21:42)
[2019-07-27] MEDS: MELATONIN 5 MG TABLETS PO PRN (21:42)
[2019-07-27] MEDS: QUEtiapine FUMARATE 300 MG TABLET PO SCH (21:42)
[2019-07-28 09:28] VITALS: TEMP 97.6
[2019-07-28] MEDS: DOCUSATE SODIUM 100 MG CAPSULE (FP) PO SCH (09:50)
[2019-07-28] MEDS: SERTRALINE HCL 50 MG TABLET (FP) PO SCH (09:50)
[2019-07-28] MEDS: ARIPiprazole 15 MG TABLET PO SCH (09:50)
[2019-07-28] MEDS: amLODIPine BESYLATE 10 MG TABLET (FP) PO SCH (09:50)
[2019-07-28] MEDS: PRENATAL VITAMINS W/ FOLIC ACID TABLET (FP) PO SCH (09:50)
[2019-07-28] MEDS: ATENOLOL 50 MG TABLET (FP) PO SCH (09:50)
[2019-07-28] MEDS: NALTREXONE HCL 50 MG TABLET PO SCH (09:50)
[2019-07-28] MEDS: KETOCONAZOLE 2% CREAM - 60GM TUBE TP SCH (09:52)
[2019-07-28] MEDS: NICOTINE 14 MG/24 HOURS TOPICAL PATCH TD SCH (09:52)
[2019-07-28] MEDS: MELATONIN 5 MG TABLETS PO PRN (21:17)
[2019-07-28] MEDS: THIAMINE HCL 100 MG TABLET (FP) PO SCH (21:17)
[2019-07-28] MEDS: QUEtiapine FUMARATE 300 MG TABLET PO SCH (21:17)
[2019-07-29 07:03] VITALS: PULSE 77
[2019-07-29] MEDS: NALTREXONE HCL 50 MG TABLET PO SCH (09:45)
[2019-07-29] MEDS: ARIPiprazole 15 MG TABLET PO SCH (09:45)
[2019-07-29] MEDS: DOCUSATE SODIUM 100 MG CAPSULE (FP) PO SCH (09:45)
[2019-07-29] MEDS: PRENATAL VITAMINS W/ FOLIC ACID TABLET (FP) PO SCH (09:45)
[2019-07-29] MEDS: ATENOLOL 50 MG TABLET (FP) PO SCH (09:45)
[2019-07-29] MEDS: NICOTINE 14 MG/24 HOURS TOPICAL PATCH TD SCH (09:45)
[2019-07-29] MEDS: SERTRALINE HCL 50 MG TABLET (FP) PO SCH (09:45)
[2019-07-29] MEDS: amLODIPine BESYLATE 10 MG TABLET (FP) PO SCH (09:45)
[2019-07-29] MEDS: KETOCONAZOLE 2% CREAM - 60GM TUBE TP SCH (09:45)
[2019-07-29 10:02] VITALS: BP 118/73
--- NOTE | 2019-07-29 11:12 | DS ---
[facility] Rehab Discharge Summary - [facility] Rehab Discharge Summary Admission Date: 07/06/19 Discharge Date: 07/29/19 - History Present History: Alcohol dependence - Discharge Physical Exam Vital Signs: Vital Signs Temperature 97.6 F 07/29/19 07:02 Pulse Rate 77 07/29/19 09:30 Respiratory Rate 18 07/29/19 09:30 Blood Pressure 118/73 07/29/19 09:30 O2 Sat by Pulse Oximetry (%) Pertinent Admission Physical Exam Findings: ROS: denies alcohol cravings, shakes, sweating, chest pain and sob PE: alert and oriented x 3 skin warm and dry +perrla, eoms intact bl car s1s2 resp cta bl ext no tremors, amb ad francisca no swelling - Treatment Discharge Condition: Discharge condition good Hospital Course: Patient completed rehab today, attended group meetings, 1:1 services with counselor and reports accomplishing all rehab goals. Patient is medically stable and denies SI/HI. Patient is motivated to maintain sobriety and able to identify positive coping mechanisms and triggers. Patient encouraged to continue with recovery process to prevent relapse. - Medication Discharge Medications: Ambulatory Orders Multivitamins [Multivit ([facility] Formulary)] 1 tab PO DAILY 02/22/18 Naltrexone HCl 50 mg PO DAILY 02/22/18 Duloxetine HCl [Cymbalta -] 60 mg PO DAILY #30 capsule. 07/23/18 Quetiapine Fumarate [Seroquel -] 300 mg PO HS #30 tablet 07/23/18 traZODone HCL [Desyrel -] 200 mg PO HS #30 tablet 07/23/18 Aripiprazole 15 mg PO DAILY 07/01/19 Diclofenac Sodium 100 mg PO DAILY 07/01/19 Aripiprazole [Abilify -] 15 mg PO DAILY #30 tablet 07/18/19 Quetiapine Fumarate [Seroquel -] 300 mg PO HS #30 tablet 07/18/19 Sertraline HCl 50 mg PO DAILY #30 tablet 07/18/19 Amlodipine Besylate [Norvasc -] 10 mg PO DAILY #30 tablet 07/29/19 Atenolol [Tenormin -] 100 mg PO DAILY #30 tablet 07/29/19 - Medication-Assisted Treatment (MAT) Medication-Assisted Treatment (MAT): No MAT Follow-up Referral: [facility] Outpatient program, [facility], appointment on 08/02/19. - Discharge Instructions Diet, activity, other medical instructions: Diet: DAVID as tolerated Activity: As tolerated Other medical instructions: follow up with PCP as recommended - Follow-up Referral Minutes to complete discharge: 30 - AMA Did Patient Leave Against Medical Advice: No
== END 2019-07-29 12:50 | disposition home or self-care (01) | DRG 772 ==
LOC: YASAS 15:37 → Y3W 15:38
PROVIDERS: ADMIT Neuromusculoskeletal Medicine & OMM; ATTEND Neuromusculoskeletal Medicine & OMM
PROC: HZ42ZZZ Group Counseling for Substance Abuse Treatment, Cognitive-Behavioral (ICD-10-PCS; principal; 2019-07-06)
DX: F10.20 Alcohol dependence, uncomplicated (principal); F11.20 Opioid dependence, uncomplicated; F14.20 Cocaine dependence, uncomplicated; F17.210 Nicotine dependence, cigarettes, uncomplicated; F25.9 Schizoaffective disorder, unspecified; F31.9 Bipolar disorder, unspecified; F19.24 Other psychoactive substance dependence with psychoactive substance-induced mood disorder; I10 Essential (primary) hypertension; J44.9 Chronic obstructive pulmonary disease, unspecified; M06.9 Rheumatoid arthritis, unspecified; M19.90 Unspecified osteoarthritis, unspecified site; B18.2 Chronic viral hepatitis C; Z90.5 Acquired absence of kidney; Z86.19 Personal history of other infectious and parasitic diseases; Z72.51 High risk heterosexual behavior; Z91.041 Radiographic dye allergy status
CPT/HCPCS: 36415; 86593; 87086; 87389